=== PATIENT | female | born 1975 | race Caucasian/White ===

== ENCOUNTER 2018-05-23 15:18 | Emergency (ER) | payer BC ==
[2018-05-23] MEDS ORDERED: ASPIRIN 81 MG CHEWABLE TABLETS PO ONE ×2 (15:27→15:44)
[2018-05-23] MEDS ORDERED: ASPIRIN 81 MG CHEWABLE TABLETS ONE (15:29)
--- NOTE | 2018-05-23 15:39 | PDOC ---
Attending Attestation - HPI HPI: 05/23/18 15:45 The patient is a 43 year old female with a PMH of obesity and HTN who presents to the ER with persistent left sided arm discomfort and difficulty sleeping secondary to the discomfort for the past 3 days. Patient was seen by an urgent care at [facility] and was sent to the ED for further evaluation of abnormal EKG. Patient admits to an extensive smoking history. Patient has a positive cardiac family history. The patient denies chest pain, shortness of breath, headache and dizziness. Denies fever, chills, nausea, vomit, diarrhea and constipation. Denies dysuria, frequency, urgency and hematuria. Allergies: NKA Past surgical history: None reported. Social history: No reported drug or alcohol use. Every day smoker. <Ella Williamson - Last Filed: 05/23/18 15:47> - Resident Resident Name: Mayito Faulkner - ED Attending Attestation I have performed the following: I have examined & evaluated the patient, The case was reviewed & discussed with the resident, I agree w/resident's findings & plan, Exceptions are as noted - Physicial Exam PE: 05/23/18 15:54 GENERAL: Awake, alert, and fully oriented, in no acute distress HEAD: No signs of trauma EYES: PERRLA, EOMI, sclera anicteric, conjunctiva clear ENT: Auricles normal inspection, hearing grossly normal, nares patent, Moist mucosa NECK: Normal ROM, supple, LUNGS: Breath sounds equal, clear to auscultation bilaterally. No wheezes, and no crackles HEART: Tachycardia, Regular rate and rhythm, normal S1 and S2, no murmurs, rubs or gallops ABDOMEN: Soft, nontender, No guarding, no rebound. No masses EXTREMITIES: Normal range of motion, no edema. No clubbing or cyanosis. No cords, erythema, or tenderness NEUROLOGICAL: Cranial nerves II through XII grossly intact. Normal speech SKIN: Warm, Dry, normal turgor, no rashes or lesions noted. - Critical Care Time Total Critical Care Time: 30 Critical Care Statement: The care of this patient involved high complexity decision making to prevent further life threatening deterioration of the patient 's condition and/or to evaluate & treat vital organ system(s) failure or risk of failure. - Medical Decision Making 05/23/18 15:34 A portion of this note was documented by scribe services under my direction. I have reviewed the details of the note, within reason, and agree with the documentation with the following case summary and management plan written by me. Patient treated in the ED. Nursing notes are reviewed and incorporated into the medical decision-making. Vital signs reviewed. Peripheral IV access obtained by the nurse, laboratory studies are drawn and sent, reviewed and interpreted by myself. Vital Signs Temp Pulse Resp BP Pulse Ox 142 H 20 210/110 H 100 05/23/18 15:24 05/23/18 15:24 05/23/18 15:24 05/23/18 15:24 43 year old female with reportedly no past medical history, extensive smoking history presents with left arm discomfort. Pt reports for the last 3 days, she felt discomfort left arm pain, unable to sleep. No exacerbating or improving risk factors. Not exertional, however, nonreproducible. Pt does report signficantly strong family history of cardiac disease and MIs in early ages with her father. Pt went to urgent care at [facility], which was concerning for ND. Pt was sent to the ER here. Here ECG, demonstrates findings concerning for STEMI. Stat Cards consultation. Labs including troponin. Chest xray Aspirin. Pt's story is somewhat atypical but ECG is very concerning Very low threshold to transfer stat for cardiac catherization. 05/23/18 15:[address] Jeffrey. Agrees that this is STEMI. [facility] Will reach [facility] transfer momence. Pt agrees for transfer. 05/23/18 16:01 CBC, BMP 05/23/18 15:30 05/23/18 15:30 CMP Sodium 137 mmol/L (136-145) 05/23/18 15:30 Potassium 3.6 mmol/L (3.5-5.1) 05/23/18 15:30 Chloride 102 mmol/L (98-107) 05/23/18 15:30 Carbon Dioxide 24 mmol/L (21-32) 05/23/18 15:30 Anion Gap 11 MMOL/L (8-16) 05/23/18 15:30 BUN 15 mg/dL (7-18) 05/23/18 15:30 Creatinine 1.0 mg/dL (0.55-1.3) 05/23/18 15:30 Creat Clearance w eGFR > 60 (>60) 05/23/18 15:30 Random Glucose 109 mg/dL (74-106) H 05/23/18 15:30 Calcium 8.6 mg/dL (8.5-10.1) 05/23/18 15:30 Magnesium 2.1 mg/dL (1.8-2.4) 05/23/18 15:30 Total Bilirubin 0.7 mg/dL (0.2-1) 05/23/18 15:30 AST 237 U/L (15-37) H 05/23/18 15:30 ALT 46 U/L (13-61) 05/23/18 15:30 Alkaline Phosphatase 100 U/L (45-117) 05/23/18 15:30 Creatine Kinase > 1000 U/L (26-192) H 05/23/18 15:30 Total Protein 7.9 g/dl (6.4-8.2) 05/23/18 15:30 Albumin 4.2 g/dl (3.4-5.0) 05/23/18 15:30 Trop [address] discussed [address] DR. Hernandez - [facility]. Requests ticagrelor. Will transfer stat to [facility]. <Prosper Gonzalez - Last Filed: 05/23/18 16:06> Heart Score/ECG Review #1 ECG reviewed & interpreted by me at: 15:25 05/23/18 15:34 NSR 136, Q-NATALIE V3-V6, NATALIE II, avF, QTC 439 msec (STEMI) <Prosper Gonzalez - Last Filed: 05/23/18 16:06>
[2018-05-23 15:42] LABS: EOS % 0.8 % (0-4.5); HEMATOCRIT 46.7 % (32.4-45.2); LYMPH % 22.9 % (8-40); MCH 29.2 pg (25.7-33.7); MCHC 34.3 g/dl (32.0-36.0); MEAN CELL VOLUME 84.9 fl (80-96); MEAN PLT VOLUME 9.8 fl (7.5-11.1); MONO % 8.3 % (3.8-10.2); PLATELET COUNT 199 K/MM3 (134-434); RDW 14.1 % (11.6-15.6); WHITE BLOOD COUNT 19.8 K/mm3 (4.0-10.0)
[2018-05-23] MEDS ORDERED: CLOPIDOGREL BISULFATE 300 MG TABLET PO ONE (15:44)
--- NOTE | 2018-05-23 15:44 | PDOC ---
History of Present Illness - General Chief Complaint: Pain Stated Complaint: RIGHT ARM PAIN Time Seen by Provider: 05/23/18 15:24 History Source: Patient Exam Limitations: No Limitations - History of Present Illness Initial Comments: 05/23/18 15:42 Patient is a 43F with history of obesity, htn, smoking here today complaining of left arm pain. She initially presented to [facility] urgent care with left arm pain. EKG showed STEMI, patient drove to our hospital denying an ambulance. Patient states that the pain has been going on for three days. No modifying factors. Patient states that the pain is bad enough to keep her up at night. EKG done at [facility] shows STEMI in lateral leads. Past History - Past Medical History Allergies/Adverse Reactions: Allergies Allergy/AdvReac Type Severity Reaction Status Date / Time No Known Allergies Allergy Verified 05/23/18 15:33 Home Medications: Ambulatory Orders NK [No Known Home Medication] 05/23/18 COPD: No - Suicide/Smoking/Psychosocial Hx Smoking History: Current every day smoker Number of Cigarettes Smoked Daily: 10 Information on smoking cessation initiated: No Review of Systems - Review of Systems Able to Perform ROS?: Yes Comments:: 05/23/18 15:49 GENERAL/CONSTITUTIONAL: No fever or chills. No weakness. HEAD, EYES, EARS, NOSE AND THROAT: No change in vision. No sore throat. CARDIOVASCULAR: No chest pain or shortness of breath RESPIRATORY: No cough, wheezing, or hemoptysis. GASTROINTESTINAL: No nausea, vomiting, diarrhea or constipation. GENITOURINARY: No dysuria, frequency, or change in urination. MUSCULOSKELETAL: +L arm pain. No neck or back pain. SKIN: No rash NEUROLOGIC: No headache, vertigo, loss of consciousness, or change in strength/ sensation. ENDOCRINE: No increased thirst. No abnormal weight change HEMATOLOGIC/LYMPHATIC: No anemia, easy bleeding, or history of blood clots. ALLERGIC/IMMUNOLOGIC: No hives or skin allergy. *Physical Exam - Vital Signs Last Vital Signs Temp Pulse Resp BP Pulse Ox 142 H 20 210/110 H 100 05/23/18 15:24 05/23/18 15:24 05/23/18 15:24 05/23/18 15:24 - Physical Exam Comments: 05/23/18 15:50 GENERAL: Awake, alert, and fully oriented, in no acute distress HEAD: No signs of trauma, normocephalic, atraumatic EYES: PERRLA, EOMI, sclera anicteric, conjunctiva clear ENT: Auricles normal inspection, hearing grossly normal, nares patent, oropharynx clear without exudates. Moist mucosa NECK: Normal ROM, supple, no lymphadenopathy, JVD, or masses LUNGS: No distress, speaks full sentences, clear to auscultation bilaterally HEART: Tachycardic, normal S1 and S2, no murmurs, rubs or gallops, peripheral pulses normal and equal bilaterally. ABDOMEN: Soft, nontender, normoactive bowel sounds. No guarding, no rebound. No masses EXTREMITIES: Normal inspection, Normal range of motion, no edema. No clubbing or cyanosis. NEUROLOGICAL: Cranial nerves II through XII grossly intact. Normal speech, normal gait, no focal sensorimotor deficits SKIN: Warm, Dry, normal turgor, no rashes or lesions noted Moderate Sedation - Procedure Monitoring Vital Signs: Procedure Monitoring Vital Signs Temperature Pulse Rate 142 H 05/23/18 15:24 Respiratory Rate 20 05/23/18 15:24 Blood Pressure 210/110 H 05/23/18 15:24 O2 Sat by Pulse Oximetry (%) 100 05/23/18 15:24 ED Treatment Course - LABORATORY CBC & Chemistry Diagram: 05/23/18 15:30 05/23/18 15:30 - RADIOLOGY Radiology Studies Ordered: Category Date Time Status CHEST X-RAY PORTABLE* [RAD] Stat Radiology 05/23/18 15:27 Ordered - Medications Given in the ED: ED Medications Discontinued Medications Generic Name Dose Route Start Last Admin Trade Name Freq PRN Reason Stop Dose Admin Aspirin 162 mg 05/23/18 15:27 05/23/18 15:33 Asa - PO 05/23/18 15:28 162 mg ONCE ONE Administration Medical Decision Making - Medical Decision Making 05/23/18 15:50 Patient is 43F with history of obesity, htn, smoking here today with l arm pain. Vitals notable for htn. EKG from [facility] shows ST elevations in lateral leads, rate of 90. Normal axis, normal intervals. EKG from triage shows st elevations in V3-V6, I, II, aVF. Rate 136, sinus tachycardia. Normal intervals. 05/23/18 16:08 Trop 28, cbc shows leukocytosis. No signs of alternative diagnosis such as PE, dissection, sepsis. Case d/w Dr Aldridge, accepted for transfer. EKGs sent. Brilinta 180 given as per request. Aspirin and heparin given. 05/23/18 16:13 CXR shows cardiomegaly, no widened mediastinum, no infiltrate. Patient transferred to [facility]. *DC/Admit/Observation/Transfer Diagnosis at time of Disposition: STEMI (ST elevation myocardial infarction) - Discharge Dispostion Disposition: TRANSFER ACUTE CARE/OTHER HOSP Condition at time of disposition: Critical - Referrals - Patient Instructions - Post Discharge Activity - Transfer to Acute Care Facility Receiving Facility: [facility] Accepting Physician:: Harmony
[2018-05-23] MEDS ORDERED: CLOPIDOGREL BISULFATE 300 MG TABLET ONE (15:49)
[2018-05-23] MEDS ORDERED: ASPIRIN COATED 81 MG TABLET.EC ONE (15:50)
[2018-05-23] MEDS ORDERED: HEPARIN NA (PORCINE) 5,000 UNITS/ML 1ML VIAL ONE (15:54)
[2018-05-23] MEDS ORDERED: HEPARIN NA (PORCINE) 5,000 UNITS/ML 1ML VIAL IVPUSH ONE (15:54)
[2018-05-23 15:55] LABS: INR 1.15 (0.83-1.09); PROTHROMBIN TIME (PATIENT) 13.6 SEC (9.7-13.0)
[2018-05-23 16:00] LABS: ALBUMIN 4.2 g/dl (3.4-5.0); ALK PHOS 100 U/L (45-117); ANION GAP 11 MMOL/L (8-16); BILIRUBIN,TOTAL 0.7 mg/dL (0.2-1); BLOOD UREA NITROGEN 15 mg/dL (7-18); CALCIUM 8.6 mg/dL (8.5-10.1); CHLORIDE 102 mmol/L (98-107); CO2 24 mmol/L (21-32); GLUCOSE,RANDOM 109 mg/dL (74-106); MAGNESIUM 2.1 mg/dL (1.8-2.4); POTASSIUM 3.6 mmol/L (3.5-5.1); SGOT/AST 237 U/L (15-37); SGPT/ALT 46 U/L (13-61); SODIUM 137 mmol/L (136-145); TOT PROT 7.9 g/dl (6.4-8.2)
[2018-05-23] MEDS ORDERED: TICAGRELOR 90 MG TABLET PO ONE ×2 (16:00→16:04)
[2018-05-23 16:41] VITALS: BP 170/106; PULSE 126
--- NOTE | 2018-05-23 17:35 | CON.CARD ---
Consult Consult Specialty:: CARDIOLOGY Reason for Consultation:: chest pain; STEMI - History of Present Illness Chief Complaint: Pt A&Ox3; +left-sided chest pain, though mild now. and mother are at bedside. History of Present Illness: The patient is a 43 year old white woman with a PMH of obesity, long-term cigarette smoking, family hx CAD (father had MS),sedentary lifestyle, and HTN ( pt did not know she had HTN until now), who presents to the ER with persistent left sided arm discomfort and difficulty sleeping secondary to the discomfort for the past 3 days (she waited to see MD because she thought it was the same pain she usually has when she sleeps on lieft side; however, this was more severe and kept her from sleeping). Patient was seen by an urgent care at [facility] and was sent to the ED for further evaluation of abnormal EKG. The patient denies chest pain, shortness of breath, headache and dizziness. Denies fever, chills, nausea, vomit, diarrhea and constipation. Denies dysuria, frequency, urgency and hematuria. Allergies: NKA Past surgical history: None reported. Social history: No reported drug or alcohol use. Every day smoker. Denies diabetes, but glucse elevated today. - History Source History Provided By: Patient, Family Member, Medical Record Limitations to Obtaining History: No Limitations - Smoking History Smoking history: Current every day smoker Aproximately how many cigarettes per day: 10 Home Medications - Allergies Allergies/Adverse Reactions: Allergies Allergy/AdvReac Type Severity Reaction Status Date / Time No Known Allergies Allergy Verified 05/23/18 15:33 - Home Medications Home Medications: Ambulatory Orders NK [No Known Home Medication] 05/23/18 Family Disease History - Family Disease History Family Disease History: Heart Disease: Father (MS om tanner 60s) Review of Systems - Review of Systems Constitutional: reports: No Symptoms Eyes: reports: No Symptoms HENT: reports: No Symptoms Neck: reports: No Symptoms Cardiovascular: reports: Chest Pain Respiratory: reports: No Symptoms Gastrointestinal: reports: No Symptoms Genitourinary: reports: No Symptoms Breasts: reports: No Symptoms Reported Musculoskeletal: reports: No Symptoms Integumentary: reports: No Symptoms Neurological: reports: No Symptoms Endocrine: reports: No Symptoms Hematology/Lymphatic: reports: No Symptoms Psychiatric: reports: No Symptoms - Risk Factors Known Risk Factors: Yes: Age, Family History, Hypercholesterolemia, Hypertension , Physical Inactivity, Smoking. No: Diabetes Mellitus Vital Signs: Vital Signs Temperature Pulse Rate 126 H 05/23/18 16:41 Respiratory Rate 20 05/23/18 16:41 Blood Pressure 170/106 H 05/23/18 16:41 O2 Sat by Pulse Oximetry (%) 99 05/23/18 16:40 Abnormal Lab Results 05/23/18 05/23/18 05/23/18 15:30 15:30 15:30 WBC 19.8 H RBC 5.50 H Hgb 16.0 H Hct 46.7 H Absolute Neuts (auto) 13.3 H PT with INR 13.60 H INR 1.15 H Random Glucose 109 H AST 237 H Creatine Kinase 1869 H Creatine Kinase Index 8.2 H* CK-MB (CK-2) 152.8 H Troponin I 28.40 H* 05/23/18 05/23/18 15:30 15:30 WBC RBC Hgb Hct Absolute Neuts (auto) PT with INR INR Random Glucose AST Creatine Kinase Creatine Kinase Index CK-MB (CK-2) 153.0 H 153 H Troponin I Constitutional: Yes: Anxious, Obese Eyes: Yes: WNL HENT: Yes: WNL Neck: Yes: WNL Respiratory: Yes: Diminished Gastrointestinal: Yes: Soft, Abdomen, Obese Renal/: No: Anuria Cardiovascular: Yes: Tachycardia JVD: No Carotid Bruit: No PMI: Non-Displaced Heart Sounds: Yes: S1, S2, S4 Musculoskeletal: Yes: WNL Extremities: Yes: WNL Edema: No Integumentary: Yes: WNL Neurological: Yes: WNL ...Motor Strength: WNL Psychiatric: Yes: WNL - Other Data Labs, Other Data: CBC, BMP 05/23/18 15:30 05/23/18 15:30 INR, PTT INR 1.15 (0.83-1.09) H 05/23/18 15:30 Troponin, BNP 05/23/18 15:30 Troponin I 28.40 H* Troponin, BNP 05/23/18 15:30 Troponin I 28.40 H* Abnormal Lab Results 05/23/18 05/23/18 05/23/18 15:30 15:30 15:30 WBC 19.8 H RBC 5.50 H Hgb 16.0 H Hct 46.7 H Absolute Neuts (auto) 13.3 H PT with INR 13.60 H INR 1.15 H Random Glucose 109 H AST 237 H Creatine Kinase 1869 H Creatine Kinase Index 8.2 H* CK-MB (CK-2) 152.8 H Troponin I 28.40 H* 05/23/18 05/23/18 15:30 15:30 WBC RBC Hgb Hct Absolute Neuts (auto) PT with INR INR Random Glucose AST Creatine Kinase Creatine Kinase Index CK-MB (CK-2) 153.0 H 153 H Troponin I Imaging - Results Chest X-ray: Image Reviewed EKG: Image Reviewed (STEMI) Problem List - Problems (1) HTN (hypertension) Code(s): I10 - ESSENTIAL (PRIMARY) HYPERTENSION (2) Obese Code(s): E66.9 - OBESITY, UNSPECIFIED (3) Hyperglycemia Code(s): R73.9 - HYPERGLYCEMIA, UNSPECIFIED (4) Hyperlipidemia Code(s): E78.5 - HYPERLIPIDEMIA, UNSPECIFIED (5) Sedentary lifestyle Code(s): Z91.89 - OTH PERSONAL RISK FACTORS, NOT ELSEWHERE CLASSIFIED (6) Family history of coronary artery disease Code(s): Z82.49 - FAMILY HX OF ISCHEM HEART DIS AND OTH DIS OF THE [facility] SYS (7) STEMI (ST elevation myocardial infarction) Assessment/Plan: Marked ST elevation anterolaterally. Tropinin 28; CK > 1,800, with CKMB relative index >8. Plan: ASA 325 mg PO. IV heparin. Tacagrelor. Atorvastatin 80 mg. Pt for emergent transfer to [facility] for coronary angiogram. Code(s): I21.3 - ST ELEVATION (STEMI) MYOCARDIAL INFARCTION OF [facility] SITE
--- NOTE | 2018-05-23 22:03 | EKG ---
Test Reason : Blood Pressure : / mmHG Vent. Rate : 136 BPM Atrial Rate : 136 BPM P-R Int : 136 ms QRS Dur : 078 ms QT Int : 292 ms P-R-T Axes : 058 168 060 degrees QTc Int : 439 ms SINUS TACHYCARDIA POSSIBLE LEFT ATRIAL ENLARGEMENT INFERIOR INFARCT , POSSIBLY ACUTE WITH ST ELEVATION ANTERIORLATERAL ST ELEVATION, MYOCARDIAL INFARCTION, ACUTE OR RECENT POOR R PROGRESSION DUE TO MYOCARDIAL DAMAGE ABNORMAL ECG NO PREVIOUS ECGS AVAILABLE Confirmed by BRANDON HERBERT, LIYAH ([id number]) on 05/23/2018 10:02:48 PM Referred By: Confirmed By:LIYAH TAYLOR MD
[2018-05-24] MEDS ORDERED: TICAGRELOR 90 MG TABLET PO ONE (10:00)
== END 2018-05-23 16:40 | disposition short-term general hospital (02) ==
LOC: JER 15:18
PROC: 3E033GC Introduction of Other Therapeutic Substance into Peripheral Vein, Percutaneous Approach (ICD-10-PCS; principal; 2018-05-23)
DX: I21.3 ST elevation (STEMI) myocardial infarction of unspecified site (principal); I10 Essential (primary) hypertension; E78.5 Hyperlipidemia, unspecified; F17.210 Nicotine dependence, cigarettes, uncomplicated; R73.9 Hyperglycemia, unspecified; Z91.89 Other specified personal risk factors, not elsewhere classified; Z82.49 Family history of ischemic heart disease and other diseases of the circulatory system
CPT/HCPCS: 36415; 71045-TC-FY; 80053; 82550; 82553; 83036; 83735; 84484; 84703; 85025; 85610; 93005; 93010; 99285-25; J1644

== ENCOUNTER 2018-05-28 13:48 | Emergency (ER) | payer BC ==
[2018-05-28] MEDS ORDERED: ASPIRIN 81 MG CHEWABLE TABLETS PO ONE (13:58)
--- NOTE | 2018-05-28 13:59 | PDOC ---
Rapid Medical Evaluation Time Seen by Provider: 05/28/18 13:57 Medical Evaluation: Allergies Allergy/AdvReac Type Severity Reaction Status Date / Time No Known Allergies Allergy Verified 05/23/18 15:33 05/28/18 13:57 I have performed a brief in-person evaluation of this patient. The patient presents with a chief complaint of:L shoulder pain s/p cardiac stent hx of STEMI Pertinent physical exam findings:NAD I have ordered the following:Cardiac work up The patient will proceed to the ED for further evaluation. 05/28/18 13:59 Discharge Disposition - Diagnosis Shoulder pain, left - Referrals - Patient Instructions - Post Discharge Activity
[2018-05-28 14:02] VITALS: BMI 42.1
--- NOTE | 2018-05-28 14:07 | PDOC ---
Attending Attestation - ED Attending Attestation I have performed the following: I have examined & evaluated the patient, The case was reviewed & discussed with the resident, I agree w/resident's findings & plan - HPI HPI: 05/28/18 15:38 The patient is a 43 year old female, with a significant past medical history of STEMI (seen 05/23/18 now s/p cardiac stenting x3 at [facility]), HTN, obesity, who presents to the emergency department with, left shoulder pain ranked a 2/10. Patients symptoms are similar to her prior UT. She denies recent fevers, chills, headache or dizziness. She denies recent nausea, vomit, diarrhea or constipation. She denies recent dysuria, frequency, urgency or hematuria. Allergies: NKDA Past surgical history: None reported. Social history: Smoker (~10 pack years, quit since recent UT) Aquatic Physiotherapist: Dr. Jeffrey - Medical Decision Making 05/28/18 14:15pm Call placed to Dr. Jeffrey's office, awaiting call back. 14:30pm Second call placed to Dr. Jeffrey's office, awaiting call back. 14:40pm Call placed to [facility] [place] for STEMI transfer. Resident Dr. Flaquita May discussed case with cardio fellow, case was accepted. 14:30pm Third call placed to Dr. Jeffrey's office, case was discussed. <Michael Greenberg - Last Filed: 05/28/18 15:38> - Resident Resident Name: Flaquita May - Physicial Exam PE: 05/30/18 00:39 Gen: alert, NAD CV: rrr no m/r/g Pulm: CTA b/l Abdomen: soft, NT, ND - Critical Care Time Total Critical Care Time: 30 Critical Care Statement: The care of this patient involved high complexity decision making to prevent further life threatening deterioration of the patient 's condition and/or to evaluate & treat vital organ system(s) failure or risk of failure. - Medical Decision Making 05/28/18 14:58 Pt presents to the ED with L shoulder pain similar to pain with recent UT. EKG shows ST elevations in anterior and lateral leads. Patient presented to the ED with STEMI one week ago and had cath at [facility] with two stents placed. on brillanta, which she states she has been taking. Concern for in stent stenosis. Attempt to page [facility] x 2 without success. Will call [facility] directly to initiate transfer to [facility] <Alisa Chong - Last Filed: 05/30/18 00:40> Attestations - Attestations 05/28/18 15:41 Documentation prepared by Michael Greenberg, acting as medical or surgical instrument maker for Alisa Chong MD. <Michael Greenberg - Last Filed: 05/28/18 15:38>
[2018-05-28] MEDS ORDERED: ASPIRIN 81 MG CHEWABLE TABLETS ONE (14:20)
[2018-05-28 14:40] LABS: BASO % 1.1 % (0-2.0); EOS % 1.8 % (0-4.5); HEMATOCRIT 41.1 % (32.4-45.2); MCHC 33.9 g/dl (32.0-36.0); MEAN CELL VOLUME 85.4 fl (80-96); MEAN PLT VOLUME 9.7 fl (7.5-11.1); MONO % 6.4 % (3.8-10.2); NEUT % 73.7 % (42.8-82.8); PLATELET COUNT 252 K/MM3 (134-434); RBC 4.82 M/mm3 (3.60-5.2); RDW 13.4 % (11.6-15.6); WHITE BLOOD COUNT 12.2 K/mm3 (4.0-10.0)
[2018-05-28 14:53] LABS: INR 1.25 (0.83-1.09); PROTHROMBIN TIME (PATIENT) 14.8 SEC (9.7-13.0)
--- NOTE | 2018-05-28 15:01 | PDOC ---
History of Present Illness - General Chief Complaint: Pain, Acute Stated Complaint: LT SHOULDER PAIN Time Seen by Provider: 05/28/18 13:57 - History of Present Illness Initial Comments: Vera Lott is a 43yo woman with a PMH of recent STEMI (seen 05/23/18) now s/p 2x stent placement at [facility], HTN, obesity, smoking (~ 10 pack years, quit since recent GA) who presents with 2/10 left shoulder that started around 10-11am today. The current pain is described as an ache, and it is very similar to the pain she experienced with her STEMI. She denies any diaphoresis, chest pain, SOB, pain radiation, lightheadedness, or other recent symptoms. Ms Lott states that she has been taking all of the medications she was prescribed at her hospital discharge on Thursday. Over the past few days, she has been pain-free up until this morning. Past History - Past Medical History Allergies/Adverse Reactions: Allergies Allergy/AdvReac Type Severity Reaction Status Date / Time No Known Allergies Allergy Verified 05/28/18 13:59 Home Medications: Ambulatory Orders Aspirin [ASA -] 81 mg PO DAILY 05/28/18 Atorvastatin Ca [Lipitor] 80 mg PO HS 05/28/18 Lisinopril [Prinivil] 10 mg PO DAILY 05/28/18 Metoprolol Succinate [Toprol Xl] 100 mg PO DAILY 05/28/18 Nitroglycerin Sublingual [Nitrostat -] 0.4 mg SL ASDIR PRN 05/28/18 Ticagrelor [Brilinta] 90 mg PO BID 05/28/18 Cardiac Disorders: Yes (GA W/ STENTS X2) COPD: No - Surgical History Cardiac Surgery: Yes (STENTS X2) - Immunization History Immunization Up to Date: Yes - Suicide/Smoking/Psychosocial Hx Smoking History: Never smoked Number of Cigarettes Smoked Daily: 10 Information on smoking cessation initiated: No Hx Alcohol Use: No Drug/Substance Use Hx: No Cardiac Specific PMH - Complaint Specific PMHX Abdominal Aortic Aneurysm: No Angina: No Cardiac Arrhythmia: No Cardiac Stent: Yes (05/23/18, 2x stents inc LAD) Myocardial Infarction: Yes (05/23/18) Review of Systems - Review of Systems Comments:: General: No fevers, no chills, no weight or appetite change, no malaise HEENT: No changes in vision, no changes in hearing, no congestion, no sore throat CV: No chest pain, no palpitations, no LE edema. +L shoulder pain, +STEMI on s/p 2x stents Pulm: No SOB, no cough, no wheezing GI: No nausea or vomiting, no change in bowel habits, no melena : No frequency, no urgency, no dysuria Musc: No back pain, no joint swelling, no recent injury Skin: No rash, no lesions, no erythema Endo: No excessive thirst, no heat/cold intolerance Heme: No unusual bruising or bleeding, no swollen glands Neuro: No syncope, no numbness/tingling, no focal weakness Vasc: No claudication Psych: No recent change in mood, no SI or HI *Physical Exam - Vital Signs Last Vital Signs Temp Pulse Resp BP Pulse Ox 98.0 F 76 18 141/97 100 05/28/18 14:40 05/28/18 14:40 05/28/18 14:40 05/28/18 14:40 05/28/18 14:40 - Physical Exam Comments: General: Comfortable, no acute distress HEENT: PERRL, EOMI, MMM, voice normal, normal neck ROM, no LAD Cards: RRR, no murmur appreciated Pulm: Comfortable on room air, clear to auscultation bilaterally Abd: Soft, nontender, nondistended Ext: Atraumatic. No LE edema. ROM intact. Strength equal bilaterally Vasc: Extremities WWP Skin: Normal color, no rashes or lesions Neuro: A&Ox3, CN grossly intact, normal speech, motor/sensory grossly intact and symmetric Psych: Mood appropriate to situation Moderate Sedation - Procedure Monitoring Vital Signs: Procedure Monitoring Vital Signs Temperature 98.0 F 05/28/18 14:40 Pulse Rate 76 05/28/18 14:40 Respiratory Rate 18 05/28/18 14:40 Blood Pressure 141/97 05/28/18 14:40 O2 Sat by Pulse Oximetry (%) 100 05/28/18 14:40 ED Treatment Course - LABORATORY CBC & Chemistry Diagram: 05/28/18 14:20 05/28/18 14:20 - ADDITIONAL ORDERS Additional order review: Laboratory Results 05/28/18 05/28/18 05/28/18 14:20 14:20 14:20 WBC 12.2 H RBC 4.82 Hgb 14.0 Hct 41.1 MCV 85.4 MCH 29.0 MCHC 33.9 RDW 13.4 Plt Count 252 D MPV 9.7 Absolute Neuts (auto) 9.0 H Neutrophils % 73.7 Lymphocytes % 17.0 D Monocytes % 6.4 Eosinophils % 1.8 D Basophils % 1.1 Nucleated RBC % 0 PT with INR 14.80 H INR 1.25 H Sodium 138 Potassium 4.2 Chloride 104 Carbon Dioxide 26 Anion Gap 8 BUN 14 Creatinine 0.9 Creat Clearance w eGFR > 60 Random Glucose 118 H Calcium 9.1 Magnesium 2.7 H Total Bilirubin 0.8 AST 38 H ALT 36 Alkaline Phosphatase 88 Creatine Kinase 185 Creatine Kinase Index 0.9 CK-MB (CK-2) 1.8 Troponin I 6.44 H* Total Protein 7.9 Albumin 3.8 05/28/18 14:20 RBC 4.82 MCV 85.4 MCHC 33.9 RDW 13.4 MPV 9.7 Neutrophils % 73.7 Lymphocytes % 17.0 D Monocytes % 6.4 Eosinophils % 1.8 D Basophils % 1.1 - RADIOLOGY Radiology Studies Ordered: Category Date Time Status CHEST PA & LAT [RAD] Stat Radiology 05/28/18 15:18 Ordered - Medications Given in the ED: ED Medications Discontinued Medications Generic Name Dose Route Start Last Admin Trade Name Freq PRN Reason Stop Dose Admin Aspirin 162 mg 05/28/18 13:58 05/28/18 14:21 Asa - PO 05/28/18 13:59 162 mg ONCE ONE Administration Medical Decision Making - Medical Decision Making 05/28/18 14:33 Vera Lott is a 43yo woman with a PMH of recent STEMI (seen 05/23/18) now s/p 2x stent placement at [facility], HTN, obesity, smoking (~ 10 pack years, quit since recent GA) who presents with 2/10 left shoulder ache similar to the pain she experienced with her STEMI. An EKG was completed in [facility] , and it shows ST elevations in V2-V6 similar to last week. The elevations appear to be less severe than previously, but there is no post-PCI EKG available for comparison. Ms Lott states that her previous pain did resolve after stenting, and it restarted this morning around 10-11am. - CBC, chemistry, cardiac profile, CXR ordered in [facility] - Call placed to cardiology, waiting for call back 05/28/18 15:07 - Trop and CK pending - 2x calls placed to cardiology w/o response - On phone with [place] interventional cardiology. Difficulty sending EKG, will fax 05/28/18 15:29 - Accepted for transfer by Dr Hernandez at [place] - Will consent for transfer. Ambulance is on the way for transfer Discussed with Dr Arlette May PGY1 *DC/Admit/Observation/Transfer Diagnosis at time of Disposition: STEMI (ST elevation myocardial infarction) - Discharge Dispostion Disposition: TRANSFER ACUTE CARE/OTHER HOSP Condition at time of disposition: Stable - Referrals - Patient Instructions - Post Discharge Activity - Transfer to Acute Care Facility Receiving Facility: [facility]) Accepting Physician:: Dr Taylor
[2018-05-28 15:15] LABS: ALBUMIN 3.8 g/dl (3.4-5.0); ALK PHOS 88 U/L (45-117); ANION GAP 8 MMOL/L (8-16); BILIRUBIN,TOTAL 0.8 mg/dL (0.2-1); BLOOD UREA NITROGEN 14 mg/dL (7-18); CALCIUM 9.1 mg/dL (8.5-10.1); CHLORIDE 104 mmol/L (98-107); CO2 26 mmol/L (21-32); CREATININE 0.9 mg/dL (0.55-1.3); GLUCOSE,RANDOM 118 mg/dL (74-106); MAGNESIUM 2.7 mg/dL (1.8-2.4); POTASSIUM 4.2 mmol/L (3.5-5.1); SGOT/AST 38 U/L (15-37); SGPT/ALT 36 U/L (13-61); SODIUM 138 mmol/L (136-145); TOT PROT 7.9 g/dl (6.4-8.2)
[2018-05-28 15:43] VITALS: TEMP 98
[2018-05-28 15:58] VITALS: BP 136/86; PULSE 74
--- NOTE | 2018-05-31 11:04 | EKG ---
Test Reason : Blood Pressure : / mmHG Vent. Rate : 090 BPM Atrial Rate : 090 BPM P-R Int : 172 ms QRS Dur : 094 ms QT Int : 370 ms P-R-T Axes : 052 150 060 degrees QTc Int : 452 ms NORMAL SINUS RHYTHM POSSIBLE LEFT ATRIAL ENLARGEMENT INFERIOR INFARCT (CITED ON OR BEFORE 23-MAY-2018) ANTEROLATERAL INFARCT (CITED ON OR BEFORE 23-MAY-2018) ST ELEVATION, EVOLVING MYOCARDIAL INFARCTION ABNORMAL ECG WHEN COMPARED WITH ECG OF 23-MAY-2018 15:22, VENT. RATE HAS DECREASED BY 46 BPM Confirmed by LIYAH TAYLOR MD ([id number]) on 05/31/2018 11:04:07 AM Referred By: Confirmed By:LIYAH TAYLOR MD
== END 2018-05-28 15:57 | disposition short-term general hospital (02) ==
LOC: JER 13:48
DX: I21.3 ST elevation (STEMI) myocardial infarction of unspecified site (principal); Z95.5 Presence of coronary angioplasty implant and graft; I25.2 Old myocardial infarction; Z87.891 Personal history of nicotine dependence
CPT/HCPCS: 36415; 80053; 82550; 82553; 83735; 84484; 85025; 85610; 93005; 93010; 99285-25

== ENCOUNTER 2018-06-17 11:27 | Observation (INO) | payer BC ==
[2018-06-17] MEDS ORDERED: ASPIRIN 81 MG CHEWABLE TABLETS PO ONE (12:13)
--- NOTE | 2018-06-17 12:20 | PDOC ---
History of Present Illness - General Chief Complaint: Chest Pain Stated Complaint: CHEST PAIN History Source: Patient Exam Limitations: No Limitations - History of Present Illness Initial Comments: 06/17/18 12:17 43 yo F with a hx of CAD s/p PCI 2x 4 weeks ago and HTN presents to the emergency department with chest pain mid sternum. Per the patient, she states the pain started suddenly at random without radiation that feels like tightness currently 2/10. Of note, the pain She took yesterday 0.4 nitro at 4-5 pm with relief achieved of the pain. The pain lasts for minutes and terminates on its own. This morning, she awoke with nausea and chest pain. Denies the following: recent travels, headache, lightheadedness, nausea, vomiting, dysuria, hematuria , SOB, visual changes, FND, trauma, hx of DVT/PE, abdominal pain, diarrhea, hematochezia, and leg pain/swelling Shx: None Meds: Brillinta, aspirin Allergies: NKDA Social: Former smoker; quit 4 weeks ago. Denies substance abuse and alcohol abuse. Can Striper: Dr. Jeffrey Past History - Past Medical History Allergies/Adverse Reactions: Allergies Allergy/AdvReac Type Severity Reaction Status Date / Time No Known Allergies Allergy Verified 06/17/18 11:41 Home Medications: Ambulatory Orders Aspirin [ASA -] 81 mg PO DAILY 05/28/18 Atorvastatin Ca [Lipitor] 80 mg PO HS 05/28/18 Lisinopril [Prinivil] 10 mg PO DAILY 05/28/18 Metoprolol Succinate [Toprol Xl] 100 mg PO DAILY 05/28/18 Nitroglycerin Sublingual [Nitrostat -] 0.4 mg SL ASDIR PRN 05/28/18 Ticagrelor [Brilinta -] 90 mg PO BID 05/28/18 Spironolactone 12.5 mg PO DAILY 06/17/18 Cardiac Disorders: Yes (MT W/ STENTS X2) COPD: No - Surgical History Cardiac Surgery: Yes (STENTS X2) - Immunization History Immunization Up to Date: Yes - Suicide/Smoking/Psychosocial Hx Smoking History: Former smoker Have you smoked in the past 12 months: No Number of Cigarettes Smoked Daily: 10 If you are a former smoker, when did you quit?: 04/2018 Information on smoking cessation initiated: No Hx Alcohol Use: No Drug/Substance Use Hx: No Review of Systems - Review of Systems Able to Perform ROS?: Yes Is the patient limited Tajik proficient: No Constitutional: No: Chills, Diaphoresis, Fever, Weakness HEENTM: No: Eye Pain, Blurred Vision, Recent change in vision, Ear Pain, Nose Pain, Mouth Pain Respiratory: No: Cough, Shortness of Breath, Hemoptysis Cardiac (ROS): Yes: Chest Pain. No: Lightheadedness, Palpitations, Syncope, Chest Tightness ABD/GI: No: Constipated, Diarrhea, Nausea, Rectal Bleeding, Vomiting, Tarry Stools : No: Burning, Dysuria, Incontinence, Pain, Urgency Musculoskeletal: No: Back Pain, Joint Pain, Neck Pain Integumentary: No: Bruising, Erythema, Rash Neurological: No: Headache, Numbness, Tingling, Tremors, Weakness, Dizziness Psychiatric: No: Change in Appetite Endocrine: No: Unexplained Weight Gain *Physical Exam - Vital Signs Last Vital Signs Temp Pulse Resp BP Pulse Ox 98.5 F 77 19 164/73 99 06/17/18 11:38 06/17/18 11:38 06/17/18 11:38 06/17/18 11:38 06/17/18 11:38 - Physical Exam General Appearance: Yes: Nourished, Appropriately Dressed, Obese. No: Apparent Distress HEENT: positive: EOMI, JACQUELINE, Normal Voice, Symmetrical, Pharynx Normal, Hearing Grossly Normal. negative: Pale Conjunctivae, Scleral Icterus (R), Scleral Icterus (L), Muffled/Hoarse voice, Pharyngeal Erythema, Tonsillar Exudate, Tonsillar Erythema, Excessive drooling Neck: positive: Trachea midline, Supple. negative: Tender, Lymphadenopathy (R) , Lymphadenopathy (L), Tender lateral, Tender midline Respiratory/Chest: positive: Lungs Clear, Normal Breath Sounds. negative: Chest Tender, Respiratory Distress, Accessory Muscle Use Cardiovascular: positive: Regular Rhythm, Regular Rate, S1, S2, Systolic Murmur Gastrointestinal/Abdominal: positive: Normal Bowel Sounds, Flat, Soft. negative : Tender Lymphatic: negative: Adenopathy Musculoskeletal: positive: Normal Inspection. negative: CVA Tenderness, Vertebral Tenderness Extremity: positive: Normal Capillary Refill, Normal Inspection, Normal Range of Motion. negative: Tender, Swelling, Calf Tenderness Integumentary: positive: Normal Color, Dry, Warm. negative: Petechiae, Rash, Swelling Neurologic: positive: grid operator II-XII NML intact, Fully Oriented, Alert, Normal Mood/ Affect, Normal Response, Motor Strength 5/5. negative: EOM Palsy Moderate Sedation - Procedure Monitoring Vital Signs: Procedure Monitoring Vital Signs Temperature 98.5 F 06/17/18 11:38 Pulse Rate 77 06/17/18 11:38 Respiratory Rate 19 06/17/18 11:38 Blood Pressure 164/73 06/17/18 11:38 O2 Sat by Pulse Oximetry (%) 99 06/17/18 11:38 Heart Score/ECG Review - ECG Intrepretation Comment:: ventricular rate is 70 bpm, WI is 172 ms, QTc is 483 ms, QRS is 98 ms. NSR with q waves in II,III, aVF seen in prior EKG and q waves in the V2-V6 seen in previous EKG. No ST elevations or depressions. Changed from previous EKG which shows ST elevations. ED Treatment Course - LABORATORY CBC & Chemistry Diagram: 06/18/18 06:17 06/18/18 06:17 Medical Decision Making - Medical Decision Making 06/17/18 12:56 43 yo F with a hx of CAD s/p PCI 2x 4 weeks ago and HTN presents to the emergency department with chest pain mid sternum. Initial vitals: Initial Vital Signs Temp Pulse Resp BP Pulse Ox 98.5 F 77 19 164/73 99 06/17/18 11:38 06/17/18 11:38 06/17/18 11:38 06/17/18 11:38 06/17/18 11:38 Work up: ddx: ACS (recent hx of PCI 2/2 MT) vs PNA vs possible coronary artery vs aortic dissection (unlikely given that she had normal pulses without deficits or asymmetry, normocardia HR, no neck pain and/or back pain, no trauma, without tearing quality, lasting less than a minute) vs pleuritis vs pericarditis Laboratory Tests 06/17/18 06/17/18 06/17/18 12:23 12:23 12:23 WBC 10.0 RBC 4.86 Hgb 14.3 Hct 41.6 MCV 85.6 MCH 29.3 MCHC 34.3 RDW 13.7 Plt Count 174 D MPV 10.7 D Absolute Neuts (auto) 7.4 Neutrophils % 74.0 Lymphocytes % 19.2 Monocytes % 5.1 Eosinophils % 1.1 Basophils % 0.6 Nucleated RBC % 0 PT with INR 13.70 H INR 1.16 H PTT (Actin FS) 32.5 Sodium Potassium Chloride Carbon Dioxide Anion Gap BUN Creatinine Creat Clearance w eGFR Random Glucose Calcium Total Bilirubin AST ALT Alkaline Phosphatase Creatine Kinase Troponin I Total Protein Albumin Urine HCG, Qual Negative 06/17/18 06/17/18 12:23 15:45 WBC RBC Hgb Hct MCV MCH MCHC RDW Plt Count MPV Absolute Neuts (auto) Neutrophils % Lymphocytes % Monocytes % Eosinophils % Basophils % Nucleated RBC % PT with INR INR PTT (Actin FS) Sodium 139 Potassium 4.2 Chloride 105 Carbon Dioxide 27 Anion Gap 7 L BUN 16 Creatinine 1.1 Creat Clearance w eGFR 54.47 Random Glucose 123 H Calcium 9.1 Total Bilirubin 0.7 AST 21 ALT 37 Alkaline Phosphatase 99 Creatine Kinase 97 Troponin I 0.06 H 0.07 H Total Protein 8.0 Albumin 4.4 Urine HCG, Qual labs wnl except for a slight elevation in troponin 0.06. CXR within normal limits and EKG without ST elevations or depresisons seen. Patient was given aspirin 324 mg full dose (she had 81 mg earlier today; gave the remainder). 06/17/18 14:[address] Jeffrey. He will assess from [facility] results of last cath and dispo from there. Per cardiology, ok to go home after second trop. Second trop showed elevation from 0.[address] Jeffrey was consulted and was ok with tele obs admission for further cardiac work up. Dispo: Admit *DC/Admit/Observation/Transfer Diagnosis at time of Disposition: Chest pain Qualifiers: Chest pain type: unspecified Qualified Code(s): R07.9 - Chest pain, unspecified - Referrals - Patient Instructions - Post Discharge Activity
[2018-06-17] MEDS ORDERED: ASPIRIN 81 MG CHEWABLE TABLETS ONE (12:27)
--- NOTE | 2018-06-17 12:32 | PDOC ---
Attending Attestation - Resident Resident Name: Kiran Jean - ED Attending Attestation I have performed the following: I have examined & evaluated the patient, The case was reviewed & discussed with the resident, I agree w/resident's findings & plan, Exceptions are as noted - HPI HPI: 06/17/18 12:29 43 yo F h/o htn, cad, recently had two stents 4 weeks ago ( sees dr gillespie ) here with intermittent chest pain since yesterday. no f/c no numbness or tingling. took nitro, and relieved her pain. pt at that time originally had only left shoulder pain. one week following her stents she had a repeat cath for recurrent pain. pt stats last night she was feeling pain, took nitro and it resolved. then this am she noticed feeling tired, and nauseas, with pain. no diaphoresis. no sob. no mod factors. no leg swelling. no numbness or tingling. no f/c 06/17/18 13:10 - Physicial Exam PE: 06/17/18 12:31 awake alert lungs clear bilaterally heart rrr no mrg abd soft nt nd. ext wwp no edema. no calf tenderness. pulses symmetric. alert oriented x 3 . - Medical Decision Making 06/17/18 12:31 differential cad, stent occlusion, non stented lesion , infection, plan cxr ekg labs , trop will d/w dr gillespie. asa. will liklely require observation. <Alana Quiñonez - Last Filed: 06/17/18 13:10> - Medical Decision Making EXAM#: TYPE/EXAM: RESULT: [id number] RAD/CHEST X-RAY PORTABLE* Chest pain. Impression. No evidence of active pulmonary disease. Reported By: Karson Farfan MD 06/17/18 13:51 Documentation prepared by CLARK Nettles, acting as medical referral coordinator for Alana Quiñonez MD. 06/17/18 14:00 <Masha Gan - Last Filed: 06/17/18 14:01>
[2018-06-17 12:33] LABS: BASO % 0.6 % (0-2.0); EOS % 1.1 % (0-4.5); HEMATOCRIT 41.6 % (32.4-45.2); HEMOGLOBIN 14.3 GM/dL (10.7-15.3); LYMPH % 19.2 % (8-40); MCH 29.3 pg (25.7-33.7); MCHC 34.3 g/dl (32.0-36.0); MEAN CELL VOLUME 85.6 fl (80-96); MEAN PLT VOLUME 10.7 fl (7.5-11.1); MONO % 5.1 % (3.8-10.2); PLATELET COUNT 174 K/MM3 (134-434); RBC 4.86 M/mm3 (3.60-5.2); RDW 13.7 % (11.6-15.6)
[2018-06-17 12:45] LABS: INR 1.16 (0.83-1.09); PROTHROMBIN TIME (PATIENT) 13.7 SEC (9.7-13.0)
[2018-06-17 12:48] LABS: ACTIVATED PTT 32.5 SECONDS (25.2-36.5)
[2018-06-17 13:36] LABS: ALBUMIN 4.4 g/dl (3.4-5.0); ALK PHOS 99 U/L (45-117); ANION GAP 7 MMOL/L (8-16); BILIRUBIN,TOTAL 0.7 mg/dL (0.2-1); BLOOD UREA NITROGEN 16 mg/dL (7-18); CALCIUM 9.1 mg/dL (8.5-10.1); CHLORIDE 105 mmol/L (98-107); CO2 27 mmol/L (21-32); CREATININE 1.1 mg/dL (0.55-1.3); GLUCOSE,RANDOM 123 mg/dL (74-106); POTASSIUM 4.2 mmol/L (3.5-5.1); SGOT/AST 21 U/L (15-37); SGPT/ALT 37 U/L (13-61); SODIUM 139 mmol/L (136-145)
--- NOTE | 2018-06-17 18:24 | HP ---
CHIEF COMPLAINT: chest pain x 2 days PCP: HISTORY OF PRESENT ILLNESS: 43 y/o F with PMH CAD s/p PCI x 2 (4 weeks prior), with SHAVON in mLAD, prox LAD, former smoker, obese, +cardiac fam hx in father, w/HTN, who presents to the ED c /o 2 day hx chest pain. As per pt, the pain began yesterday and was in her mid- sternal region and was characterized as intermittent "tightness." Non- positional. Pain lasted for few minutes before subsiding. Discomfort was 2/10, and w/o radiation. For this reason, pt took nitro 0.4 at 4-5pm, which alleviated her pain. She was able to sleep. This morning, after pt dropped her kids off at school, the same pain recurred and was a/w nausea without emesis. For this reason, she decided to come to the ED for further evaluation. At this time, denies diaphoresis, palpitations, current N/V, ROCK, fever, chills, SOB, chest pressure, or changes in urinary or bowel function. Pt follows with Dr. Jeffrey. Is scheduled for a stress test. Has had previous ECHO done in his office, however is unsure of exact results. Her current sx today are not the same as her past SD in April. At that time, she had a vague pain in her L arm. 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 quit in April after SD Alcohol: rarely Drugs: used to smoke marijuana Family History: father - cardiac issues, CHF, afib, HTN Allergies No Known Allergies Allergy (Verified 06/17/18 11:41) HOME MEDICATIONS: Home Medications Medication Instructions Recorded Aspirin [ASA -] 81 mg PO DAILY 05/28/18 Atorvastatin Ca [Lipitor] 80 mg PO HS 05/28/18 Lisinopril [Prinivil] 10 mg PO DAILY 05/28/18 Metoprolol Succinate [Toprol Xl] 100 mg PO DAILY 05/28/18 Nitroglycerin Sublingual 0.4 mg SL ASDIR PRN 05/28/18 [Nitrostat -] Ticagrelor [Brilinta] 90 mg PO BID 05/28/18 Spironolactone 12.5 mg PO DAILY 06/17/18 REVIEW OF SYSTEMS CONSTITUTIONAL: Absent: fever, chills, diaphoresis, generalized weakness, malaise, loss of appetite, weight change HEENT: Absent: rhinorrhea, nasal congestion, throat pain, throat swelling, difficulty swallowing, mouth swelling, ear pain, eye pain, visual changes CARDIOVASCULAR: +chest pain Absent: chest pain, syncope, palpitations, irregular heart rate, lightheadedness , peripheral edema RESPIRATORY: Absent: cough, shortness of breath, dyspnea with exertion, orthopnea, wheezing, stridor, hemoptysis GASTROINTESTINAL: Absent: abdominal pain, abdominal distension, nausea, vomiting, diarrhea, constipation, melena, hematochezia GENITOURINARY: Absent: dysuria, frequency, urgency, hesitancy, hematuria, flank pain, genital pain MUSCULOSKELETAL: Absent: myalgia, arthralgia, joint swelling, back pain, neck pain SKIN: Absent: rash, itching, pallor HEMATOLOGIC/IMMUNOLOGIC: Absent: easy bleeding, easy bruising, lymphadenopathy, frequent infections ENDOCRINE: Absent: unexplained weight gain, unexplained weight loss, heat intolerance, cold intolerance NEUROLOGIC: Absent: headache, focal weakness or paresthesias, dizziness, unsteady gait, seizure, mental status changes, bladder or bowel incontinence PSYCHIATRIC: Absent: anxiety, depression, suicidal or homicidal ideation, hallucinations. PHYSICAL EXAMINATION Vital Signs - 24 hr 06/17/18 06/17/18 11:38 12:14 Temperature 98.5 F Pulse Rate 77 Pulse Rate [ 63 Apical] Respiratory 19 18 Rate Blood Pressure 164/73 Blood Pressure 134/65 [Right Arm] O2 Sat by Pulse 99 96 Oximetry (%) GENERAL: Awake, alert, and fully oriented, in no acute distress. HEAD: Normal with no signs of trauma. EYES: Pupils equal, round and reactive to light, extraocular movements intact, sclera anicteric, conjunctiva clear. No lid lag. EARS, NOSE, THROAT: Ears normal, nares patent, oropharynx clear without exudates. Moist mucous membranes. NECK: Normal range of motion, supple LUNGS: Breath sounds equal, clear to auscultation bilaterally. No wheezes, and no crackles. No accessory muscle use. HEART: Regular rate and rhythm, normal S1 and S2 without murmur, rub or gallop. ABDOMEN: Soft, obese, nontender, not distended, normoactive bowel sounds LOWER EXTREMITIES: 2+ pt pulses, warm, well-perfused. No calf tenderness. No peripheral edema. NEUROLOGICAL: Cranial nerves II-XII intact. motor strength 5/5 UE, LE. sensation intact. PSYCHIATRIC: +anxious SKIN: Warm, dry, normal turgor Laboratory Results - last 24 hr 06/17/18 06/17/18 06/17/18 12:23 12:23 15:45 Sodium 139 Potassium 4.2 Chloride 105 BUN 16 Creatinine 1.1 Random Glucose 123 H Total Bilirubin 0.7 AST 21 ALT 37 Troponin I 0.06 H 0.07 H Urine HCG, Qual Negative EKG: NSR, rate 70bpm, qtc 483ms. +TWI lateral leads CXR: without acute pathology ASSESSMENT/PLAN: 43 y/o F with PMH CAD s/p PCI x 2 (4 weeks prior), with SHAVON in mLAD, prox LAD, former smoker, obese, +cardiac fam hx in father, w/HTN, who presents to the ED c /o 2 day hx chest pain. #Atypical angina r/o ACS -2/3 criteria- substernal, relieved by NG -with elevated trop 0.06>0.07. c/t trend until peak -f/u ECHO, a1c -repeat lipid profile in 1 month -Mg>2, K>4 -tele monitoring -cardio consult: Dr. Jeffrey #CAD s/p PCI x 2 -c/w asa, brillinta -as with SHAVON, will likely need p2y12- for at least 1 yr #HTN-currently controlled -c/w toprol, lisinopril #F/E/N no IVF needed at this time continue to follow lytes na controlled/cholesterol controlled/heart healthy diet #PPX DVT: lovenox #Dispo tele-obs Visit type - Emergency Visit Emergency Visit: Yes ED Registration Date: 06/17/18 Care time: The patient presented to the Emergency Department on the above date and was hospitalized for further evaluation of their emergent condition. - New Patient This patient is new to me today: Yes Date on this admission: 06/17/18 - Critical Care Critical Care patient: No
--- NOTE | 2018-06-17 18:59 | HP ---
CHIEF COMPLAINT: chest pain PCP: no pcp; cardio is Dr Jeffrey HISTORY OF PRESENT ILLNESS: 43 y/o female with PMH of CAD s/p PCI one month ago presented to the ED with chest pain that started yesterday. patient states yesterday she had some midsternal chest pain that did not last long; no radiation was involved she described the pain more as a discomfort. she took a nitro at around 4-5 oclock went to lay down then woke up to move to her bed and fell asleep. this morning she woke up the pain was there again and she had some associated nausea, once again the pain only lasted a few minutes, she got nervous and came to the ER. This was different from her pain from when she had her CT back in april where she only presented with right arm discomfort where she was found to have a STEMI and was transferred to [place] for 2 stents. since then she has been taking all of her medications religiously, stopped smoking and exercising more frequently. By the time she got the hospital she did not have anymore symptoms ER course was notable for: (1)trop .06 no EKG changes from previous (2)given ASA 325 x1; echo was done bedside- no signs of tamponade (3)dr jeffrey saw patient ; possibly dresslers? Recent Travel: none PAST MEDICAL HISTORY: see above PAST SURGICAL HISTORY: PCI in april Social History: Smoking:former smoker; quit when she found out she had CT Alcohol:social drinker Drugs: former marijuana; quit when she found out about CT Family History:fathers side extensive cardiac history Allergies No Known Allergies Allergy (Verified 06/17/18 11:41) HOME MEDICATIONS: Home Medications Medication Instructions Recorded Aspirin [ASA -] 81 mg PO DAILY 05/28/18 Atorvastatin Ca [Lipitor] 80 mg PO HS 05/28/18 Lisinopril [Prinivil] 10 mg PO DAILY 05/28/18 Metoprolol Succinate [Toprol Xl] 100 mg PO DAILY 05/28/18 Nitroglycerin Sublingual 0.4 mg SL ASDIR PRN 05/28/18 [Nitrostat -] Ticagrelor [Brilinta] 90 mg PO BID 05/28/18 Spironolactone 12.5 mg PO DAILY 06/17/18 REVIEW OF SYSTEMS CONSTITUTIONAL: Absent: fever, chills, diaphoresis, generalized weakness, malaise, loss of appetite, weight change HEENT: Absent: rhinorrhea, nasal congestion, throat pain, throat swelling, difficulty swallowing, mouth swelling, ear pain, eye pain, visual changes CARDIOVASCULAR: Present: chest pain Absent: syncope, palpitations, irregular heart rate, lightheadedness, peripheral edema RESPIRATORY: Absent: cough, shortness of breath, dyspnea with exertion, orthopnea, wheezing, stridor, hemoptysis GASTROINTESTINAL: Absent: abdominal pain, abdominal distension, nausea, vomiting, diarrhea, constipation, melena, hematochezia GENITOURINARY: Absent: dysuria, frequency, urgency, hesitancy, hematuria, flank pain, genital pain MUSCULOSKELETAL: Absent: myalgia, arthralgia, joint swelling, back pain, neck pain SKIN: Absent: rash, itching, pallor HEMATOLOGIC/IMMUNOLOGIC: Absent: easy bleeding, easy bruising, lymphadenopathy, frequent infections ENDOCRINE: Absent: unexplained weight gain, unexplained weight loss, heat intolerance, cold intolerance NEUROLOGIC: Absent: headache, focal weakness or paresthesias, dizziness, unsteady gait, seizure, mental status changes, bladder or bowel incontinence PSYCHIATRIC: Absent: anxiety, depression, suicidal or homicidal ideation, hallucinations. PHYSICAL EXAMINATION Vital Signs - 24 hr 06/17/18 06/17/18 06/17/18 11:38 11:50 12:14 Temperature 98.5 F Pulse Rate 77 Pulse Rate [ 63 Apical] Respiratory 19 18 Rate Blood Pressure 164/73 Blood Pressure 134/65 [Right Arm] O2 Sat by Pulse 99 98 96 Oximetry (%) GENERAL: Awake, alert, and fully oriented, in no acute distress. EYES: PEERLA: EOMI no scleral icterus NECK: no JVD; no lymphadenopathy LUNGS: CTA B/L; no rales, rhonchi or wheezing . HEART: Regular rate and rhythm, normal S1 and S2 without murmur, rub or gallop. ABDOMEN: soft; nontender; nondistended +BS. . EXTREMITES: warm; well-perfused; no clubbing/cyanosis or edema PSYCHIATRIC: Cooperative. Good eye contact. Appropriate mood and affect. SKIN: Warm, dry, normal turgor, no rashes or lesions noted, normal capillary refill. Laboratory Results - last 24 hr 06/17/18 06/17/18 06/17/18 12:23 12:23 12:23 WBC 10.0 RBC 4.86 Hgb 14.3 Hct 41.6 MCV 85.6 MCH 29.3 MCHC 34.3 RDW 13.7 Plt Count 174 D MPV 10.7 D Absolute Neuts (auto) 7.4 Neutrophils % 74.0 Lymphocytes % 19.2 Monocytes % 5.1 Eosinophils % 1.1 Basophils % 0.6 Nucleated RBC % 0 PT with INR 13.70 H INR 1.16 H PTT (Actin FS) 32.5 Sodium Potassium Chloride Carbon Dioxide Anion Gap BUN Creatinine Creat Clearance w eGFR Random Glucose Calcium Total Bilirubin AST ALT Alkaline Phosphatase Creatine Kinase Troponin I Total Protein Albumin Urine HCG, Qual Negative 06/17/18 06/17/18 12:23 15:45 WBC RBC Hgb Hct MCV MCH MCHC RDW Plt Count MPV Absolute Neuts (auto) Neutrophils % Lymphocytes % Monocytes % Eosinophils % Basophils % Nucleated RBC % PT with INR INR PTT (Actin FS) Sodium 139 Potassium 4.2 Chloride 105 Carbon Dioxide 27 Anion Gap 7 L BUN 16 Creatinine 1.1 Creat Clearance w eGFR 54.47 Random Glucose 123 H Calcium 9.1 Total Bilirubin 0.7 AST 21 ALT 37 Alkaline Phosphatase 99 Creatine Kinase 97 Troponin I 0.06 H 0.07 H Total Protein 8.0 Albumin 4.4 Urine HCG, Qual ASSESSMENT/PLAN: 43 y/o female with PMH of CAD s/p 2 stents, HTN placed 4 weeks ago at [place] presented to the ED with on/off chest pain that started yesterday which was relieved upon arrival to the hospital. #Chest Pain no EKG changes from previous (patient also had picture of EKG done at dr. sterling office on 06/07 - todays shows slight improvement) rule out ACS -trend troponins (only 3 hours were in between 1st and 2nd)- trop #2 at 7pm -echo ordered -dr. jeffrey saw patient in ED ? dresslers no need for heparin gtt or any other intervention right now -c/w brillinta 90 BID, ASA 81 daily, Atorvastatin 80, Spironolactone 12.5, lisinopril 10, toprol 100 XL daily -monitor electrolytes : K>4, Mg>2 #HTN c/w lisinopril 10 c/w toprol 100 XL daily F/E/N not on fluids monitor electrolytes sodium-controlled diet Problem List - Problem (1) Chest pain Code(s): R07.9 - CHEST PAIN, UNSPECIFIED Qualifiers: Chest pain type: unspecified Qualified Code(s): R07.9 - Chest pain, unspecified (2) HTN (hypertension) Code(s): I10 - ESSENTIAL (PRIMARY) HYPERTENSION Visit type - Emergency Visit Emergency Visit: Yes ED Registration Date: 06/17/18 Care time: The patient presented to the Emergency Department on the above date and was hospitalized for further evaluation of their emergent condition. - New Patient This patient is new to me today: Yes Date on this admission: 06/17/18 - Critical Care Critical Care patient: No
--- NOTE | 2018-06-17 19:17 | PN ---
Teaching Attending Note Name of Resident: Cintia Mcdonald ATTENDING PHYSICIAN STATEMENT I saw and evaluated the patient. I reviewed the resident's note and discussed the case with the resident. I agree with the resident's findings and plan as documented. SUBJECTIVE: CC: CP HPI: 43 y/o lady with h/o recent diagnosis of HTN, HLP, CAD s/p STEMI on 05/23, s/p PCI with stenting of LAD who presented this time with chest pain. chest pain started yesterday at rest, it was intermittent and lasted 1-2 min the whole day. NG helped pain at some point. pain did not radiate to arms or neck, and was not associated with SOb or sweating or light headedness. this am she woke up with same sx of intermittent pain that prompted her to come to ER. Of note, patient had chest pain on 05/28 when she presented to the ER and was transferred to [place] where another cath was done and reportedly it did not show anything. last echo was in second admission to [place].. last EKG was on 06/07/18 , of which she has a picture on her phone ( still with some ST elevation and prominent TWI in lateral leads). In ER, bed side echo showed no effusion reportedly. EKG showed TWI in lateral leads. OBJECTIVE: NAD, eating dinner , oriented and cooperative HEENT: MMM, EOMI, round equal pupils, reactive to light. no facial droop, tongue at mid line. no LAP in neck CV: RRR, no MRG , no JVD Lungs: CTAB Abd: soft, NT, Nd , NL BS Ext: no edema, no erythema. ASSESSMENT AND PLAN: 43 y/o lady with h/o recent diagnosis of HTN, HLP, CAD s/p STEMI on 05/23, s/p PCI with stenting of LAD who presented this time with chest pain 1- Chest pain: EKG shows improvement of one from 06/07. trop is slightly elevated but could be coming down form original. had cath 05/28 which did not show thrombosis in stents ( reportedly ) . patient was seen by Dr. Combs , who thinks Kylie syndrome is high in DDx. currently patient is CP free. - repeat trop 6 hours form original , if increase of > 20 % this will be considered concerning . - repeat EKG if CP recurs. - cont Bb and lipitor . HR and BP within goal - cont ASA and Brilinta. - Echo in am - cont spironolactone - check A1c 2- H/o HTN: cont toprol. 3- HLP: lipitor. need repeat lipid panel in 4 weeks 4- DVT Px : Lovenox
[2018-06-17] MEDS ORDERED: ENOXAPARIN NA (PORCINE) 40 MG/0.4 ML DISP.SYRIN SQ ONE (19:25)
[2018-06-17] MEDS: ENOXAPARIN NA (PORCINE) 40 MG/0.4 ML DISP.SYRIN SQ SCH (19:27)
[2018-06-17] MEDS ORDERED: PT OWN MED DRAWER 7, Y5N ONE (20:57)
[2018-06-17] MEDS: TICAGRELOR 90 MG TABLET PO SCH (21:26)
[2018-06-17] MEDS ORDERED: ATORVASTATIN CA 80 MG TABLET (FP) PO SCH (22:00)
[2018-06-18 00:36] VITALS: BMI 38.7
[2018-06-18 07:19] LABS: BASO % 1.1 % (0-2.0); EOS % 3.5 % (0-4.5); HEMATOCRIT 38.4 % (32.4-45.2); HEMOGLOBIN 13.4 GM/dL (10.7-15.3); LYMPH % 33.8 % (8-40); MCH 29.8 pg (25.7-33.7); MEAN CELL VOLUME 85.2 fl (80-96); MEAN PLT VOLUME 10.3 fl (7.5-11.1); MONO % 7.6 % (3.8-10.2); PLATELET COUNT 145 K/MM3 (134-434); RBC 4.51 M/mm3 (3.60-5.2); RDW 13.9 % (11.6-15.6); WHITE BLOOD COUNT 9.4 K/mm3 (4.0-10.0)
[2018-06-18 08:02] LABS: ALBUMIN 3.7 g/dl (3.4-5.0); ALK PHOS 84 U/L (45-117); ANION GAP 7 MMOL/L (8-16); BILIRUBIN,TOTAL 0.5 mg/dL (0.2-1); BLOOD UREA NITROGEN 28 mg/dL (7-18); CALCIUM 8.7 mg/dL (8.5-10.1); CHLORIDE 106 mmol/L (98-107); CO2 25 mmol/L (21-32); CREATININE 0.9 mg/dL (0.55-1.3); GLUCOSE,RANDOM 100 mg/dL (74-106); MAGNESIUM 2.4 mg/dL (1.8-2.4); PHOSPHOROUS 4.2 mg/dL (2.5-4.9); POTASSIUM 4.1 mmol/L (3.5-5.1); SGOT/AST 19 U/L (15-37); SGPT/ALT 36 U/L (13-61); SODIUM 138 mmol/L (136-145)
--- NOTE | 2018-06-18 09:40 | CON.CARD ---
Consult Consult Specialty:: cardiology Reason for Consultation:: chest pain (post STEMI) - History of Present Illness Chief Complaint: PT A&Ox3; asymptomatic History of Present Illness: 43 yo white woman with zPMHx STEMI--> coronary angiogram showing 1 VD-->stents of proxiaml and mid LAD at [facility] earlier this month with repeat coronary angiogram done a week later when pt returned with chest pain (no further PCI required at that time), ,cad, here with intermittent chest pain since yesterday. no f/c no numbness or tingling. took nitro, and relieved her pain. pt at that time originally had only left shoulder pain. one week following her stents she had a repeat cath for recurrent pain. pt stats last night she was feeling pain, took nitro and it resolved. then this am she noticed feeling tired, and nauseas, with pain. no diaphoresis. no sob. no mod factors. no leg swelling. no numbness or tingling. no f/c 06/17/18 13:10 - History Source History Provided By: Patient, Family Member, Medical Record Limitations to Obtaining History: No Limitations - Past Medical History Cardio/Vascular: Yes: CHF Pulmonary: Yes: Sleep Apnea (r/o) ...LMP: 05/27/18 ...: No Psych: Yes: Anxiety, Panic - Past Surgical History Past Surgical History: Yes: Stent (proximal and mid LAD franc STEMI) - Alcohol/Substance Use Hx Alcohol Use: No - Smoking History Smoking history: Former smoker Have you smoked in the past 12 months: Yes Aproximately how many cigarettes per day: 10 If you are a former smoker, when did you quit?: 05/23/18 Home Medications - Allergies Allergies/Adverse Reactions: Allergies Allergy/AdvReac Type Severity Reaction Status Date / Time No Known Allergies Allergy Verified 06/17/18 11:41 - Home Medications Home Medications: Ambulatory Orders Aspirin [ASA -] 81 mg PO DAILY 05/28/18 Atorvastatin Ca [Lipitor] 80 mg PO HS 05/28/18 Lisinopril [Prinivil] 10 mg PO DAILY 05/28/18 Metoprolol Succinate [Toprol Xl] 100 mg PO DAILY 05/28/18 Nitroglycerin Sublingual [Nitrostat -] 0.4 mg SL ASDIR PRN 05/28/18 Ticagrelor [Brilinta -] 90 mg PO BID 05/28/18 Spironolactone 12.5 mg PO DAILY 06/17/18 Family Disease History - Family Disease History Family Disease History: Heart Disease: Father ([place] om tanner 60s) - Risk Factors Known Risk Factors: Yes: Age, Family History, Hypercholesterolemia, Hypertension , Physical Inactivity, Smoking Vital Signs: Vital Signs Temperature 98.0 F 06/18/18 06:00 Pulse Rate 60 06/18/18 06:00 Respiratory Rate 17 06/18/18 06:00 Blood Pressure 110/52 L 06/18/18 06:00 O2 Sat by Pulse Oximetry (%) 96 06/18/18 04:00 Constitutional: Yes: Anxious Eyes: Yes: WNL HENT: Yes: WNL Neck: Yes: WNL Respiratory: Yes: WNL Gastrointestinal: Yes: WNL Renal/: No: Anuria Cardiovascular: Yes: Regular Rate and Rhythm JVD: No Carotid Bruit: No PMI: Non-Displaced Heart Sounds: Yes: S1, S2, S4 Musculoskeletal: Yes: WNL Extremities: Yes: WNL Edema: No Peripheral Pulses WNL: Yes Integumentary: Yes: WNL Neurological: Yes: WNL ...Motor Strength: WNL Psychiatric: Yes: WNL - Other Data Labs, Other Data: CBC, BMP 06/18/18 06:17 06/18/18 06:17 INR, PTT INR 1.16 (0.83-1.09) H 06/17/18 12:23 Troponin, BNP 06/17/18 06/17/18 06/17/18 12:23 15:45 21:00 Troponin I 0.06 H 0.07 H 0.07 H 06/18/18 01:07 Troponin I 0.06 H Troponin, BNP 06/17/18 06/17/18 06/17/18 12:23 15:45 21:00 Troponin I 0.06 H 0.07 H 0.07 H 06/18/18 01:07 Troponin I 0.06 H Abnormal Lab Results 06/17/18 06/18/18 06/18/18 21:00 01:07 06:17 Anion Gap 7 L BUN 28 H Troponin I 0.07 H 0.06 H Imaging - Results Chest X-ray: Image Reviewed EKG: Image Reviewed Problem List - Problems (1) Severe anxiety with panic Code(s): F41.0 - PANIC DISORDER [EPISODIC PAROXYSMAL ANXIETY] (2) Family history of coronary artery disease Code(s): Z82.49 - FAMILY HX OF ISCHEM HEART DIS AND OTH DIS OF [facility] (3) HTN (hypertension) Code(s): I10 - ESSENTIAL (PRIMARY) HYPERTENSION (4) Hyperglycemia Code(s): R73.9 - HYPERGLYCEMIA, UNSPECIFIED (5) Hyperlipidemia Code(s): E78.5 - HYPERLIPIDEMIA, UNSPECIFIED (6) Obese Code(s): E66.9 - OBESITY, UNSPECIFIED (7) STEMI (ST elevation myocardial infarction) Code(s): I21.3 - ST ELEVATION (STEMI) MYOCARDIAL INFARCTION OF [facility] SITE (8) Sedentary lifestyle Code(s): Z91.89 - OT PERSONAL RISK FACTORS, NOT ELSEWHERE CLASSIFIED (9) CHF (congestive heart failure) Assessment/Plan: Pt had mod-severe anteroapical and inferoapical systolic dysfunction consistent with wraparound LAD, with mild anterior basal hypokinesis. Pt has been on metoprolol, lisinopril, and spironolactone since. F/u ECHO for LVEF, regional wall motion evaluation. Code(s): I50.9 - HEART FAILURE, UNSPECIFIED (10) Atypical chest pain Assessment/Plan: TNI 0.06; f/u serially, and if no significant increase, and EKG (presently improved in STT changes from those noted during STEMI), will discharge home with f/u as cardiac outpatient, including cardiac rehabilitation. Code(s): R07.89 - OTHER CHEST PAIN (11) Sleep apnea Assessment/Plan: consider sleep studies as outpatient. Code(s): G47.30 - SLEEP APNEA, UNSPECIFIED
[2018-06-18] MEDS ORDERED: SPIRONOLACTONE 25 MG TABLET (FP) PO SCH (10:00)
[2018-06-18] MEDS ORDERED: LISINOPRIL 10 MG TABLET (FP) PO SCH (10:00)
[2018-06-18] MEDS ORDERED: ASPIRIN 81 MG CHEWABLE TABLETS PO SCH (10:00)
[2018-06-18] MEDS: ENOXAPARIN NA (PORCINE) 40 MG/0.4 ML DISP.SYRIN SQ SCH (10:15)
[2018-06-18] MEDS: TICAGRELOR 90 MG TABLET PO SCH (11:08)
--- NOTE | 2018-06-18 11:08 | EKG ---
Test Reason : Blood Pressure : / mmHG Vent. Rate : 070 BPM Atrial Rate : 070 BPM P-R Int : 172 ms QRS Dur : 098 ms QT Int : 448 ms P-R-T Axes : 022 259 095 degrees QTc Int : 483 ms NORMAL SINUS RHYTHM LOW VOLTAGE QRS INFERIOR INFARCT (CITED ON OR BEFORE 23-MAY-2018) ANTEROLATERAL INFARCT (CITED ON OR BEFORE 23-MAY-2018) ABNORMAL ECG Confirmed by MIKI HAWK MD ([id number]) on 06/18/2018 11:07:59 AM Referred By: Confirmed By:MIKI HAWK MD
--- NOTE | 2018-06-18 11:31 | ECHO ---
Name: TARUN CAMERON Exam:Adult Echocardiogram Study Date: 06/18/2018 10:22 AM Age: 43 yrs Reason For Study: CHEST PAIN Height: 63 in Weight: 235 lb BSA: 2.1 m2 MMode/2D Measurements & Calculations IVSd: 0.82 cm Ao root diam: 2.6 cm LVIDd: 5.1 cm LA dimension: 3.7 cm LVIDs: 3.2 cm LVPWd: 0.79 cm EDV(Teich): 124.4 ml LVOT diam: 2.3 cm ESV(Teich): 41.3 ml Doppler Measurements & Calculations MV E max david: 74.5 cm/sec Ao V2 max: 177.0 cm/sec MV A max david: 53.3 cm/sec Ao max P.5 mmHg MV E/A: 1.4 Ao V2 mean: 128.7 cm/sec MV dec time: 0.20 sec Ao mean P.5 mmHg Ao V2 VTI: 34.9 cm STEVEN(I,D): 1.5 cm2 STEVEN(V,D): 1.3 cm2 LV V1 max P.4 mmHg SV(LVOT): 51.0 ml LV V1 mean P.93 mmHg LV V1 max: 59.2 cm/sec LV V1 mean: 46.7 cm/sec LV V1 VTI: 12.7 cm Med Peak E' David: 10.8 cm/sec Med E/e': 6.9 Lat Peak E' David: 5.6 cm/sec Lat E/e': 13.4 Left Ventricle Left ventricular systolic function is normal. Ejection Fraction = 55-60%. Right Ventricle The right ventricle is normal in size and function. Atria The left atrium is mildly dilated. Mitral Valve The mitral valve is normal in structure and function. There is no mitral valve stenosis. There is mil d mitral regurgitation. Tricuspid Valve The tricuspid valve is normal in structure and function. There is mild tricuspid regurgitation. Aortic Valve The aortic valve opens well. No hemodynamically significant valvular aortic stenosis. No aortic regur gitation is present. Pulmonic Valve The pulmonic valve is not well seen, but is grossly normal. There is no pulmonic valvular stenosis. Great Vessels The aortic root is normal size. Pericardium/Pleura There is no pericardial effusion. Interpretation Summary Left ventricular systolic function is normal. Ejection Fraction = 55-60%. The right ventricle is normal in size and function. The left atrium is mildly dilated. There is mild mitral regurgitation. There is mild tricuspid regurgitation. There is no pericardial effusion. MD Mendieta *Aislinn 06/18/2018 11:30 AM
--- NOTE | 2018-06-18 13:33 | PN ---
Teaching Attending Note Name of Resident: Cintia Mcdonald ATTENDING PHYSICIAN STATEMENT I saw and evaluated the patient. I reviewed the resident's note and discussed the case with the resident. I agree with the resident's findings and plan as documented. SUBJECTIVE: no fever or chills. continued to have this intermittent pain last night /, lasting for , 1min. no OSB OBJECTIVE: NAD CV: RRR, no MRG , no JVD Lungs: CTAB Ext: no edema, no erythema. ASSESSMENT AND PLAN: 43 y/o lady with h/o recent diagnosis of HTN, HLP, CAD s/p STEMI on 05/23, s/p PCI with stenting of LAD who presented this time with chest pain 1- Chest pain: No new ischemic changes. trop trended down. Echo with no effusion and NL EF with minimal valvular changes. - cont home meds - scheduled for stress test next week as outpt - f/u with card - A1c nl 2- H/o HTN: cont toprol. 3- HLP: lipitor. need repeat lipid panel in 4 weeks DC home
--- NOTE | 2018-06-18 14:12 | DS ---
Physical Exam: SUBJECTIVE: Patient seen and examined OBJECTIVE: Vital Signs Period Temp Pulse Resp BP Sys/Hoang Pulse Ox Last 24 Hr 97.9 F-98.1 F 54-66 17-18 110-137/52-84 96-100 PHYSICAL EXAM GENERAL: The patient is awake, alert, and fully oriented, in no acute distress. HEAD: Normal with no signs of trauma. EYES: PERRL, extraocular movements intact, sclera anicteric, conjunctiva clear. ENT: Ears normal, nares patent, oropharynx clear without exudates, moist mucous membranes. NECK: Trachea midline, full range of motion, supple. LUNGS: Breath sounds equal, clear to auscultation bilaterally, no wheezes, no crackles, no accessory muscle use. HEART: Regular rate and rhythm, S1, S2 without murmur, rub or gallop. ABDOMEN: Soft, nontender, nondistended, normoactive bowel sounds, no guarding, no rebound, no hepatosplenomegaly, no masses. EXTREMITIES: 2+ pulses, warm, well-perfused, no edema. NEUROLOGICAL: Cranial nerves II through XII grossly intact. Normal speech, gait not observed. PSYCH: Normal mood, normal affect. SKIN: Warm, dry, normal turgor, no rashes or lesions noted. LABS Laboratory Results - last 24 hr 06/17/18 06/17/18 06/18/18 15:45 21:00 01:07 WBC RBC Hgb Hct MCV MCH MCHC RDW Plt Count MPV Absolute Neuts (auto) Neutrophils % Lymphocytes % Monocytes % Eosinophils % Basophils % Nucleated RBC % Sodium Potassium Chloride Carbon Dioxide Anion Gap BUN Creatinine Creat Clearance w eGFR Random Glucose Hemoglobin A1c % Calcium Phosphorus Magnesium Total Bilirubin AST ALT Alkaline Phosphatase Troponin I 0.07 H 0.07 H 0.06 H Total Protein Albumin 06/18/18 06/18/18 06/18/18 06:17 06:17 06:17 WBC 9.4 RBC 4.51 Hgb 13.4 Hct 38.4 MCV 85.2 MCH 29.8 MCHC 35.0 RDW 13.9 Plt Count 145 MPV 10.3 Absolute Neuts (auto) 5.1 Neutrophils % 54.0 D Lymphocytes % 33.8 D Monocytes % 7.6 Eosinophils % 3.5 D Basophils % 1.1 Nucleated RBC % 0 Sodium 138 Potassium 4.1 Chloride 106 Carbon Dioxide 25 Anion Gap 7 L BUN 28 H Creatinine 0.9 Creat Clearance w eGFR 68.66 Random Glucose 100 Hemoglobin A1c % 5.5 Calcium 8.7 Phosphorus 4.2 Magnesium 2.4 Total Bilirubin 0.5 AST 19 ALT 36 Alkaline Phosphatase 84 Troponin I Total Protein 7.0 Albumin 3.7 HOSPITAL COURSE: Date of Admission:06/17/18 43 y/o female with PMH of CAD s/p 2 stents 4 weeks ago at [place] presented to the ED with on/off chest paiun that started two days ago which was relieved upon arrival to the hospital. Patient states that the pain was midsternal on/ off relieved by nitro and then fell aslpeep. she woke up next morning still having the discomfort with some associated nausea she got nervous and came to the hospital. EKG was done with no changes, trops were trended bumped up to 0.07 but downtrended she got an echo which was normal- she was seen by her cardio dr jeffrey and she was stable to be dc home- with an appt to see him next week and hes in the process of setting up cardiac rehab Date of Discharge: 06/18/18 Minutes to complete discharge: 39 Discharge Summary Reason For Visit: CHEST PAIN Condition: Stable - Instructions Diet, Activity, Other Instructions: You came to the emergency room with complaints of intermittent chest pain. We did an EKG , an echo and monitored your cardiac enzymes. You were seen by your mercantile reporter, Dr. Jeffrey and deemed you stable to be discharged home. Please resume all of your home medications We are referring you to an primary care physician with whom we would like you to follow up with in a week Please see Dr. Jeffrey within one week Please have your lipid panel repeated in 4 weeks *if you begin to experience any worsening chest pains, trouble breathing, nausea /vomiting please return to the emergency room immediately Referrals: Camden Herring MD [Staff Physician] - 1 Week Michael Jeffrey MD [Staff Physician] - 1 Week Disposition: HOME - Home Medications Comprehensive Discharge Medication List: Ambulatory Orders Aspirin [ASA -] 81 mg PO DAILY 05/28/18 Atorvastatin Ca [Lipitor] 80 mg PO HS 05/28/18 Lisinopril [Prinivil] 10 mg PO DAILY 05/28/18 Metoprolol Succinate [Toprol Xl] 100 mg PO DAILY 05/28/18 Nitroglycerin Sublingual [Nitrostat -] 0.4 mg SL ASDIR PRN 05/28/18 Ticagrelor [Brilinta -] 90 mg PO BID 05/28/18 Spironolactone 12.5 mg PO DAILY 06/17/18 Problem List - Problems (1) Chest pain Code(s): R07.9 - CHEST PAIN, UNSPECIFIED Qualifiers: Chest pain type: unspecified Qualified Code(s): R07.9 - Chest pain, unspecified (2) HTN (hypertension) Code(s): I10 - ESSENTIAL (PRIMARY) HYPERTENSION This patient is new to me today: No Emergency Visit: Yes ED Registration Date: 06/17/18 Care time: The patient presented to the Emergency Department on the above date and was hospitalized for further evaluation of their emergent condition. Critical Care patient: No - Discharge Referral Referred to [facility] No
[2018-06-18 16:14] VITALS: BP 129/58; PULSE 58; TEMP 98.9
--- NOTE | 2018-06-18 17:42 | PN ---
Progress Note, Physician Chief Complaint: Pt A&OX3; no symptoms. OOB in chair. History of Present Illness: 43 yo white woman with zPMHx STEMI--> coronary angiogram showing 1 VD-->stents of proxiaml and mid LAD at [facility] earlier this month with repeat coronary angiogram done a week later when pt returned with chest pain (no further PCI required at that time), ,cad, here with intermittent chest pain since yesterday. no f/c no numbness or tingling. took nitro, and relieved her pain. pt at that time originally had only left shoulder pain. one week following her stents she had a repeat cath for recurrent pain. pt stats last night she was feeling pain, took nitro and it resolved. then this am she noticed feeling tired, and nauseas, with pain. no diaphoresis. no sob. no mod factors. no leg swelling. no numbness or tingling. no f/c 06/17/18 13:10 - Current Medication List Current Medications: Active Medications Aspirin (Asa -) 81 mg PO DAILY [facility] Last Admin: 06/18/18 10:08 Dose: 81 mg Atorvastatin Calcium (Lipitor -) 80 mg PO HS [facility] Last Admin: 06/17/18 21:26 Dose: 80 mg Enoxaparin Sodium (Lovenox -) 40 mg SQ DAILY [facility] Last Admin: 06/18/18 10:15 Dose: Not Given Lisinopril (Prinivil) 10 mg PO DAILY [facility] Last Admin: 06/18/18 10:15 Dose: 10 mg Metoprolol Succinate (Toprol Xl -) 100 mg PO DAILY [facility] Last Admin: 06/18/18 10:15 Dose: 100 mg Spironolactone (Aldactone -) 12.5 mg PO DAILY [facility] Last Admin: 06/18/18 10:07 Dose: 12.5 mg Ticagrelor (Brilinta -) 90 mg PO BID [facility] Last Admin: 06/18/18 11:08 Dose: 90 mg - Objective Vital Signs: Vital Signs Temperature 98.9 F 06/18/18 16:11 Pulse Rate 58 L 06/18/18 16:11 Respiratory Rate 20 06/18/18 16:11 Blood Pressure 129/58 L 06/18/18 16:11 O2 Sat by Pulse Oximetry (%) 100 06/18/18 09:00 Constitutional: Yes: No Distress, Other (alopecia) Eyes: Yes: WNL HENT: Yes: WNL Neck: Yes: WNL Cardiovascular: Yes: WNL Respiratory: Yes: WNL Gastrointestinal: Yes: Soft, Abdomen, Obese ...Rectal Exam: Yes: Deferred Genitourinary: No: Anuria Breast(s): Yes: WNL Musculoskeletal: Yes: WNL Extremities: Yes: WNL Edema: No Peripheral Pulses WNL: Yes Integumentary: Yes: WNL Neurological: Yes: WNL Psychiatric: Yes: WNL Labs: CBC, BMP 06/18/18 06:17 06/18/18 06:17 INR, PTT INR 1.16 (0.83-1.09) H 06/17/18 12:23 Abnormal Lab Results 06/17/18 06/18/18 06/18/18 21:00 01:07 06:17 Anion Gap 7 L BUN 28 H Troponin I 0.07 H 0.06 H - ....Imaging EKG: Image Reviewed Other: Image Reviewed (telemetry: NSR; no arrhythmias) Problem List - Problems (1) Severe anxiety with panic Code(s): F41.0 - PANIC DISORDER [EPISODIC PAROXYSMAL ANXIETY] (2) Family history of coronary artery disease Code(s): Z82.49 - FAMILY HX OF ISCHEM HEART DIS AND OTH DIS OF [facility] (3) HTN (hypertension) Code(s): I10 - ESSENTIAL (PRIMARY) HYPERTENSION (4) Hyperglycemia Code(s): R73.9 - HYPERGLYCEMIA, UNSPECIFIED (5) Hyperlipidemia Code(s): E78.5 - HYPERLIPIDEMIA, UNSPECIFIED (6) Obese Code(s): E66.9 - OBESITY, UNSPECIFIED (7) STEMI (ST elevation myocardial infarction) Assessment/Plan: TNI 0.06-->0.07--0.06 No acute STT changes on EKG. Will discharge home, and f/u as outpt, with cardiac rehabilitation planned at [facility]. Code(s): I21.3 - ST ELEVATION (STEMI) MYOCARDIAL INFARCTION OF [facility] SITE (8) Sedentary lifestyle Code(s): Z91.89 - OTH PERSONAL RISK FACTORS, NOT ELSEWHERE CLASSIFIED (9) CHF (congestive heart failure) Assessment/Plan: Pt had mod-severe anteroapical and inferoapical systolic dysfunction consistent with wraparound LAD, with mild anterior basal hypokinesis. Pt has been on metoprolol, lisinopril, and spironolactone since. F/u ECHO for LVEF, regional wall motion evaluation. Addendum: today's ECHO report notes normal LVEF; no regional wall motion abnormalities mentioned. Continue above medications pres Code(s): I50.9 - HEART FAILURE, UNSPECIFIED (10) Atypical chest pain Code(s): R07.89 - OTHER CHEST PAIN (11) Sleep apnea Code(s): G47.30 - SLEEP APNEA, UNSPECIFIED
== END 2018-06-18 19:35 | disposition home or self-care (01) ==
LOC: JER 11:27 → JERBED 17:15 → J4S 19:43
PROVIDERS: ADMIT Internal Medicine; ATTEND Internal Medicine
DX: R07.89 Other chest pain (principal); I11.0 Hypertensive heart disease with heart failure; E78.5 Hyperlipidemia, unspecified; F41.0 Panic disorder [episodic paroxysmal anxiety]; I21.3 ST elevation (STEMI) myocardial infarction of unspecified site; I50.9 Heart failure, unspecified; G47.30 Sleep apnea, unspecified; Z91.89 Other specified personal risk factors, not elsewhere classified; E66.9 Obesity, unspecified; Z68.38 Body mass index [BMI] 38.0-38.9, adult; Z87.891 Personal history of nicotine dependence; Z79.82 Long term (current) use of aspirin; Z95.5 Presence of coronary angioplasty implant and graft; Z82.49 Family history of ischemic heart disease and other diseases of the circulatory system
CPT/HCPCS: 36415; 71045-TC-FY; 80053; 82550; 83036; 83735; 84100; 84484; 84703; 85025; 85610; 85730; 93005; 93010; 93306-TC; 99285-25; G0378

== ENCOUNTER 2018-07-16 21:57 | Observation (INO) | payer BC ==
[2018-07-16 22:09] VITALS: BMI 37.8
[2018-07-16 23:20] LABS: BASO % 1.3 % (0-2.0); EOS % 2.1 % (0-4.5); HEMATOCRIT 40.8 % (32.4-45.2); HEMOGLOBIN 13.4 GM/dL (10.7-15.3); LYMPH % 29.6 % (8-40); MCH 28.4 pg (25.7-33.7); MCHC 32.9 g/dl (32.0-36.0); MEAN CELL VOLUME 86.4 fl (80-96); MONO % 8.1 % (3.8-10.2); NEUT % 58.9 % (42.8-82.8); PLATELET COUNT 186 K/MM3 (134-434); RBC 4.73 M/mm3 (3.60-5.2)
--- NOTE | 2018-07-16 23:27 | PDOC ---
History of Present Illness - General Chief Complaint: Chest Pain Stated Complaint: CHEST PAIN Time Seen by Provider: 07/16/18 22:43 - History of Present Illness Initial Comments: 07/17/18 01:49 43F of HTN, CAD, and AZ (stents placed 05/23) here today for evaluation of chest pain. The patient reports that she has had 5 hours of constant, dull, left sided chest pain. Denies SOB. Denies N/V. Denies abdominal pain. She reports that her current pain feels like the pain she had when she had the AZ except for the Took an aspirin this morning 82mg. Patient denies headache, lightheadedness. Denies fever, chills. Denies shortness of breath. Denies nausea, vomiting, diarrhea, abdominal pain. Denies lower extremity edema. No relief of the pain when she bends forward. Allergies: NKA Rn Mental Health: Michael Jeffrey Past History - Past Medical History Allergies/Adverse Reactions: Allergies Allergy/AdvReac Type Severity Reaction Status Date / Time No Known Allergies Allergy Verified 06/17/18 11:41 Home Medications: Ambulatory Orders Aspirin [ASA -] 81 mg PO DAILY 05/28/18 Atorvastatin Ca [Lipitor] 80 mg PO HS 05/28/18 Lisinopril [Prinivil] 10 mg PO DAILY 05/28/18 Metoprolol Succinate [Toprol Xl] 100 mg PO DAILY 05/28/18 Ticagrelor [Brilinta -] 90 mg PO BID 05/28/18 Spironolactone 12.5 mg PO DAILY 06/17/18 Cardiac Disorders: Yes (AZ W/ STENTS X2) COPD: No HTN: Yes - Surgical History Cardiac Surgery: Yes (STENTS X2) - Immunization History Immunization Up to Date: Yes - Suicide/Smoking/Psychosocial Hx Smoking History: Unknown if ever smoked Have you smoked in the past 12 months: Yes Number of Cigarettes Smoked Daily: 10 If you are a former smoker, when did you quit?: 05/23/18 'Breaking Loose' booklet given: 06/17/18 Hx Alcohol Use: No Drug/Substance Use Hx: No Substance Use Type: Marijuana Hx Substance Use Treatment: No Cardiac Specific PMH - Complaint Specific PMHX Abdominal Aortic Aneurysm: No Angina: No Cardiac Arrhythmia: No Cardiac Stent: Yes (05/23/18, 2x stents inc LAD) Review of Systems - Review of Systems Able to Perform ROS?: Yes Is the patient limited Chinese proficient: No Constitutional: No: Symptoms Reported HEENTM: No: Symptoms Reported Respiratory: No: Symptoms reported Cardiac (ROS): Yes: See HPI ABD/GI: No: Symptoms Reported : No: Symptoms Reported Musculoskeletal: No: Symptoms Reported All Other Systems: Reviewed and Negative *Physical Exam - Vital Signs Last Vital Signs Temp Pulse Resp BP Pulse Ox 98.1 F 51 L 20 109/62 97 07/16/18 22:04 07/16/18 22:09 07/16/18 22:04 07/16/18 22:09 07/16/18 22:09 - Physical Exam General Appearance: Yes: Appropriately Dressed, Obese. No: Apparent Distress HEENT: positive: EOMI, JACQUELINE, Normal ENT Inspection Respiratory/Chest: positive: Lungs Clear, Normal Breath Sounds. negative: Chest Tender, Respiratory Distress Cardiovascular: positive: S1, S2, Bradycardia. negative: Regular Rhythm Gastrointestinal/Abdominal: positive: Normal Bowel Sounds, Flat, Soft. negative : Tender Musculoskeletal: positive: Normal Inspection. negative: CVA Tenderness Extremity: positive: Normal Capillary Refill, Normal Inspection, Normal Range of Motion Integumentary: positive: Normal Color, Dry, Warm Neurologic: positive: Fully Oriented, Alert, Normal Mood/Affect, Normal Response , Motor Strength 5/5 ED Treatment Course - LABORATORY CBC & Chemistry Diagram: 07/16/18 23:12 07/16/18 23:12 - ADDITIONAL ORDERS Additional order review: Laboratory Results 07/16/18 07/16/18 07/16/18 23:18 23:12 23:12 PT with INR 13.30 H INR 1.13 H PTT (Actin FS) 36.7 H Sodium Potassium Chloride Carbon Dioxide Anion Gap BUN Creatinine Creat Clearance w eGFR Random Glucose Calcium Total Bilirubin AST ALT Alkaline Phosphatase Troponin I Total Protein Albumin TSH 1.25 Blood Type O POSITIVE Antibody Screen Negative 07/16/18 23:12 PT with INR INR PTT (Actin FS) Sodium 142 Potassium 4.4 Chloride 108 H Carbon Dioxide 28 Anion Gap 6 L BUN 14 Creatinine 0.9 Creat Clearance w eGFR 68.66 Random Glucose 89 Calcium 9.7 Total Bilirubin 0.6 AST 18 ALT 33 Alkaline Phosphatase 94 Troponin I < 0.02 Total Protein 7.8 Albumin 4.1 TSH Blood Type Antibody Screen 07/16/18 23:12 RBC 4.73 MCV 86.4 MCHC 32.9 RDW 15.0 MPV 10.0 Neutrophils % 58.9 Lymphocytes % 29.6 Monocytes % 8.1 Eosinophils % 2.1 Basophils % 1.3 - RADIOLOGY Radiology Studies Ordered: Category Date Time Status CHEST PA & LAT [RAD] Stat Radiology 07/17/18 00:01 Taken - Medications Given in the ED: ED Medications Discontinued Medications Generic Name Dose Route Start Last Admin Trade Name Gail PRN Reason Stop Dose Admin Aspirin 325 mg 07/17/18 00:47 07/17/18 01:14 Asa - PO 07/17/18 00:48 Not Given ONCE ONE Aspirin 240 mg 07/17/18 01:08 07/17/18 01:14 Asa - PO 07/17/18 01:09 240 mg ONCE ONE Administration Medical Decision Making - Medical Decision Making 07/17/18 01:57 43f with pmh of recent AZ presenting with chest pain. Kylie syndrome vs angina vs non-cardiac etiology. EKG: Sinus rhythm with PVC's and bigeminy. Negative trops. Spoke to Dr. Ferrari, rn trauma consulting marine engineer who recommended admission to tele obs , low suspicion for angina due to negative trops after 8 hours. Patient showed us EKG from 1 week ago that she had photographed on her phone, no changes compared to today's. Patient now asymptomatic. *DC/Admit/Observation/Transfer Diagnosis at time of Disposition: Chest pain - Discharge Dispostion Decision to Admit order: Yes Decision to Admit order Date/Time: Decision to Admit Order Category Date Time Status Decision to Admit to Hospital Routine Admission 07/17/18 02:04 Ordered - Referrals - Patient Instructions - Post Discharge Activity
[2018-07-16 23:34] LABS: INR 1.13 (0.83-1.09); PROTHROMBIN TIME (PATIENT) 13.3 SEC (9.7-13.0)
[2018-07-16 23:37] LABS: ACTIVATED PTT 36.7 SECONDS (25.2-36.5)
[2018-07-16 23:49] LABS: ALBUMIN 4.1 g/dl (3.4-5.0); ALK PHOS 94 U/L (45-117); ANION GAP 6 MMOL/L (8-16); BILIRUBIN,TOTAL 0.6 mg/dL (0.2-1); BLOOD UREA NITROGEN 14 mg/dL (7-18); CALCIUM 9.7 mg/dL (8.5-10.1); CHLORIDE 108 mmol/L (98-107); CO2 28 mmol/L (21-32); CREATININE 0.9 mg/dL (0.55-1.3); GLUCOSE,RANDOM 89 mg/dL (74-106); POTASSIUM 4.4 mmol/L (3.5-5.1); SGOT/AST 18 U/L (15-37); SGPT/ALT 33 U/L (13-61); SODIUM 142 mmol/L (136-145); TOT PROT 7.8 g/dl (6.4-8.2)
[2018-07-17] MEDS ORDERED: ASPIRIN 325 MG TABLET PO ONE (00:47)
[2018-07-17] MEDS ORDERED: ASPIRIN 325 MG TABLET ONE (01:06)
[2018-07-17] MEDS ORDERED: ASPIRIN 81 MG CHEWABLE TABLETS ONE (01:08)
[2018-07-17] MEDS ORDERED: ASPIRIN 81 MG CHEWABLE TABLETS PO ONE (01:08)
--- NOTE | 2018-07-17 01:09 | PDOC ---
Documentation entered by Porfirio Roldan SCRIBE, acting as scribe for Bigg Chaudhary MD. Bigg Chaudhary MD: This documentation has been prepared by the Jamar brooke Daniel, SCRIBE, under my direction and personally reviewed by me in its entirety. I confirm that the documentation accurately reflects all work, treatment, procedures, and medical decision making performed by me. Attending Attestation - Resident Resident Name: Jonel Stover - ED Attending Attestation I have performed the following: I have examined & evaluated the patient, The case was reviewed & discussed with the resident, I agree w/resident's findings & plan, Exceptions are as noted - HPI HPI: 07/16/18 23:01 The patient is a 43 year old female with a past medical history of HTN, CAD, and AR (stents placed 05/23) here today for evaluation of chest pain. The patient reports that she has had 5 hours of constant, dull, left sided chest pain. Denies SOB. Denies N/V. Denies abdominal pain. She reports that her current pain feels like the pain she had when she had the AR. Patient denies headache, lightheadedness. Denies fever, chills. Denies shortness of breath. Denies nausea, vomiting, diarrhea, abdominal pain. Denies lower extremity edema. Allergies: NKA Primary Mill Roller: Michael Jeffrey - Physicial Exam PE: 07/17/18 00:31 "GENERAL: Awake, alert, and fully oriented, in no acute distress. HEAD: No signs of trauma EYES: PERRLA, EOMI, sclera anicteric, conjunctiva clear ENT: Auricles normal inspection, hearing grossly normal, nares patent, oropharynx clear without exudates. Moist mucosa NECK: Nontender, no stepoffs, Normal ROM, supple, no lymphadenopathy, JVD, or masses LUNGS: Breath sounds equal, clear to auscultation bilaterally. No wheezes, and no crackles HEART: Regular rate and rhythm, normal S1 and S2, no murmurs, rubs or gallops ABDOMEN: Soft, nontender, normoactive bowel sounds. No guarding, no rebound. No masses EXTREMITIES: Normal range of motion, no edema. No clubbing or cyanosis. No cords, erythema, or tenderness NEUROLOGICAL: Cranial nerves II through XII intact. 5/5 strength and sensation in all extremities, Normal speech, normal gait, normal cerebellar function SKIN: Warm, Dry, normal turgor, no rashes or lesions noted. - Medical Decision Making 07/17/18 00:31 43 F with chest pain reminiscent of her recent AR. Pt's EKG today shows bigeminy but no new ischemic changes compared to EKG done 1 month ago. - Labs, trop, BNP - CXR 07/17/18 01:09 trop negative Case discussed with cards, who recommends tele obs for serial trops. No indication for txfer for cath at this time.
--- NOTE | 2018-07-17 02:19 | HP ---
CHIEF COMPLAINT: chest pain PCP: HISTORY OF PRESENT ILLNESS: 43F of HTN, CAD, and MT (2 drug eluding stents placed 05/23) c/o chest pain which started around 5pm on 07/16 while patient was resting. Patient was about 2/ 10, no radiation, did not take NGL for it. Pain subsided by itself. Does not use cocaine. Reports compliance with Brillanta and ASA. ER course was notable for: (1) ekg (2) cxr (3) asa Recent Travel: no PAST MEDICAL HISTORY: HTN, CAD, and MT (2 stents placed 05/23-drug eluding) PAST SURGICAL HISTORY:no Social History: Smoking: quit april 2018 Alcohol:no Drugs: no Family History: father with unspecified heart disease in his 40s Allergies No Known Allergies Allergy (Verified 06/17/18 11:41) HOME MEDICATIONS: Home Medications Medication Instructions Recorded Aspirin [ASA -] 81 mg PO DAILY 05/28/18 Atorvastatin Ca [Lipitor] 80 mg PO HS 05/28/18 Lisinopril [Prinivil] 10 mg PO DAILY 05/28/18 Metoprolol Succinate [Toprol Xl] 100 mg PO DAILY 05/28/18 Ticagrelor [Brilinta -] 90 mg PO BID 05/28/18 Spironolactone 12.5 mg PO DAILY 06/17/18 REVIEW OF SYSTEMS CONSTITUTIONAL: Absent: fever, chills, diaphoresis, generalized weakness, malaise, loss of appetite, weight change HEENT: Absent: rhinorrhea, nasal congestion, throat pain, throat swelling, difficulty swallowing, mouth swelling, ear pain, eye pain, visual changes CARDIOVASCULAR: Absent:, syncope, palpitations, irregular heart rate, lightheadedness, peripheral edema present- chest pain RESPIRATORY: Absent: cough, shortness of breath, dyspnea with exertion, orthopnea, wheezing, stridor, hemoptysis GASTROINTESTINAL: Absent: abdominal pain, abdominal distension,, vomiting, diarrhea, constipation , melena, hematochezia present- nausea GENITOURINARY: Absent: dysuria, frequency, urgency, hesitancy, hematuria, flank pain, genital pain MUSCULOSKELETAL: Absent: myalgia, arthralgia, joint swelling, back pain, neck pain SKIN: Absent: rash, itching, pallor HEMATOLOGIC/IMMUNOLOGIC: Absent: easy bleeding, easy bruising, lymphadenopathy, frequent infections ENDOCRINE: Absent: unexplained weight gain, unexplained weight loss, heat intolerance, cold intolerance NEUROLOGIC: Absent: headache, focal weakness or paresthesias, dizziness, unsteady gait, seizure, mental status changes, bladder or bowel incontinence PSYCHIATRIC: Absent: anxiety, depression, suicidal or homicidal ideation, hallucinations. PHYSICAL EXAMINATION Vital Signs - 24 hr 07/16/18 07/16/18 22:04 22:09 Temperature 98.1 F Pulse Rate 39 L Pulse Rate [ 51 L Right Radial] Respiratory 20 Rate Blood Pressure 151/53 L Blood Pressure 109/62 [Right Arm] O2 Sat by Pulse 97 97 Oximetry (%) GENERAL: Awake, alert, and fully oriented, in no acute distress, obese HEAD: Normal with no signs of trauma. EYES: Pupils equal, round and reactive to light, extraocular movements intact, sclera anicteric, conjunctiva clear. No lid lag. EARS, NOSE, THROAT: Ears normal, nares patent, oropharynx clear without exudates. Moist mucous membranes. NECK: Normal range of motion, supple without lymphadenopathy, JVD, or masses. LUNGS: Breath sounds equal, clear to auscultation bilaterally. No wheezes, and no crackles. No accessory muscle use. HEART: Regular rate and rhythm, normal S1 and S2 without murmur, rub or gallop. ABDOMEN: Soft, obese nontender, not distended, normoactive bowel sounds, no guarding, no rebound, no masses. MUSCULOSKELETAL: Normal range of motion at all joints. No bony deformities or tenderness. No CVA tenderness. UPPER EXTREMITIES: 2+ pulses, warm, well-perfused. No cyanosis. No clubbing. No peripheral edema. LOWER EXTREMITIES: 2+ pulses, warm, well-perfused. No calf tenderness. No peripheral edema. NEUROLOGICAL: Cranial nerves II-XII intact. Normal speech. PSYCHIATRIC: Cooperative. Good eye contact. Appropriate mood and affect. SKIN: Warm, dry, normal turgor, no rashes or lesions noted, normal capillary refill. Laboratory Results - last 24 hr 07/16/18 07/16/18 07/16/18 23:12 23:12 23:12 WBC 12.0 H RBC 4.73 Hgb 13.4 Hct 40.8 MCV 86.4 MCH 28.4 MCHC 32.9 RDW 15.0 Plt Count 186 D MPV 10.0 Absolute Neuts (auto) 7.1 Neutrophils % 58.9 Lymphocytes % 29.6 Monocytes % 8.1 Eosinophils % 2.1 Basophils % 1.3 Nucleated RBC % 0 PT with INR 13.30 H INR 1.13 H PTT (Actin FS) 36.7 H Sodium 142 Potassium 4.4 Chloride 108 H Carbon Dioxide 28 Anion Gap 6 L BUN 14 Creatinine 0.9 Creat Clearance w eGFR 68.66 Random Glucose 89 Calcium 9.7 Total Bilirubin 0.6 AST 18 ALT 33 Alkaline Phosphatase 94 Troponin I < 0.02 Total Protein 7.8 Albumin 4.1 TSH Blood Type Antibody Screen 07/16/18 07/16/18 23:12 23:18 WBC RBC Hgb Hct MCV MCH MCHC RDW Plt Count MPV Absolute Neuts (auto) Neutrophils % Lymphocytes % Monocytes % Eosinophils % Basophils % Nucleated RBC % PT with INR INR PTT (Actin FS) Sodium Potassium Chloride Carbon Dioxide Anion Gap BUN Creatinine Creat Clearance w eGFR Random Glucose Calcium Total Bilirubin AST ALT Alkaline Phosphatase Troponin I Total Protein Albumin TSH 1.25 Blood Type O POSITIVE Antibody Screen Negative EKG - q waves in anterior -lateral leads, ventricular bigeminy cxr reviewed ASSESSMENT/PLAN: #Chest pain in high risk patient -tele/obs -trend troponin -NGL SL prn -echo -consult cardiology -ASA -Brillanta -high dose statin #Bradycardia- asymptomatic? - may be side effect of Toprolol -monitor on telemetry -no Bblockers or CCB #HTN -lisinopril #DVT ppx -heparin sc Visit type - Emergency Visit Emergency Visit: Yes ED Registration Date: 07/17/18 Care time: The patient presented to the Emergency Department on the above date and was hospitalized for further evaluation of their emergent condition. - New Patient This patient is new to me today: Yes Date on this admission: 07/17/18 - Critical Care Critical Care patient: No
[2018-07-17] MEDS ORDERED: NITROGLYCERIN SUBLINGUAL 1/150 0.4 MG TAB SL PRN (02:25)
[2018-07-17] MEDS ORDERED: LISINOPRIL 10 MG TABLET (FP) PO SCH (10:00)
[2018-07-17] MEDS ORDERED: TICAGRELOR 90 MG TABLET PO SCH (10:00)
[2018-07-17] MEDS ORDERED: SPIRONOLACTONE 25 MG TABLET (FP) PO SCH (10:00)
[2018-07-17] MEDS ORDERED: ASPIRIN 81 MG CHEWABLE TABLETS PO SCH (10:00)
[2018-07-17] MEDS ORDERED: HEPARIN NA (PORCINE) 5,000 UNITS/ML 1ML VIAL SQ SCH (10:00)
[2018-07-17] MEDS ORDERED: PT OWN MED DRAWER 7, Y5N ONE (10:15)
--- NOTE | 2018-07-17 11:58 | PN ---
Progress Note (short form) - Note Progress Note: Coverage for Dr. Chai Jeffrey Chief Complaint: Chart reviewed, events noted, recurrent atypical chest pain History of Present Illness: Seen and examined on telemetry. Full consult dictated Echocardiography noted revealed normal LV size and function with LVEF 55-60%, mild MR and TR Medications: Current Medications Aspirin (Asa -) 81 mg PO DAILY [facility] Last Admin: 07/17/18 10:17 Dose: 81 mg Atorvastatin Calcium (Lipitor -) 80 mg PO HS [facility] Heparin Sodium (Porcine) (Heparin -) 5,000 unit SQ BID [facility] Last Admin: 07/17/18 10:17 Dose: 5,000 unit Lisinopril (Prinivil) 10 mg PO DAILY [facility] Last Admin: 07/17/18 10:17 Dose: 10 mg Metoprolol Succinate (Toprol Xl -) 75 mg PO DAILY [facility] Nitroglycerin (Nitrostat -) 0.4 mg SL Q5M PRN PRN Reason: FOR CHEST PAIN Spironolactone (Aldactone -) 12.5 mg PO DAILY [facility] Ticagrelor (Brilinta -) 90 mg PO BID [facility] Last Admin: 07/17/18 10:40 Dose: 90 mg Home Medications Medication Instructions Recorded Aspirin [ASA -] 81 mg PO DAILY 05/28/18 Atorvastatin Ca [Lipitor] 80 mg PO HS 05/28/18 Lisinopril [Prinivil] 10 mg PO DAILY 05/28/18 Metoprolol Succinate [Toprol Xl] 100 mg PO DAILY 05/28/18 Ticagrelor [Brilinta -] 90 mg PO BID 05/28/18 Spironolactone 12.5 mg PO DAILY 06/17/18 Atorvastatin Ca [Lipitor] 80 mg PO HS tablet 07/17/18 Nitroglycerin Sublingual 0.4 mg SL Q5M PRN tab 07/17/18 [Nitrostat -] Review of Systems Cardiovascular: As noted above Respiratory: denies: Cough or Sputum Production Gastrointestinal: denies: Nausea, Vomiting, Diarrhea, Constipation or Abdominal Discomfort Musculoskeletal: No Symptoms Reported Endocrine: No Symptoms Reported Vital Signs: Last Vital Signs Temp Pulse Resp BP Pulse Ox 98.0 F 61 18 102/84 100 07/17/18 09:04 07/17/18 09:04 07/17/18 09:04 07/17/18 09:04 07/17/18 09:04 Intake & Output 07/14/18 07/15/18 07/16/18 07/17/18 23:59 23:59 23:59 23:59 Weight 227 lb 227 lb 3.2 oz Constitutional: No Distress, Calm, Thin Neck: Supple Negative JVD Respiratory: Clear to A&P Bilaterally Cardiovascular: S1 S2 Regular Rate and Rhythm Grade 1/6 JOSY Gastrointestinal: Soft Benign Normal Bowel Sounds Ext: No Edema Labs: Troponin, BNP 07/16/18 07/17/18 23:12 05:10 Troponin I < 0.02 0.02 CBC, BMP 07/16/18 23:12 07/16/18 23:12 Hepatic Panel Total Bilirubin 0.6 mg/dL (0.2-1) 07/16/18 23:12 AST 18 U/L (15-37) 07/16/18 23:12 ALT 33 U/L (13-61) 07/16/18 23:12 Alkaline Phosphatase 94 U/L (45-117) 07/16/18 23:12 Albumin 4.1 g/dl (3.4-5.0) 07/16/18 23:12 INR, PTT INR 1.13 (0.83-1.09) H 07/16/18 23:12 Assessment/Plan ASSESSMENT: 1. Chest pain syndrome atypical for angina pectoris, differential includes GERD vs. musculo-skeletal 2. CAD post STEMI post LAD/SHAVON angina pectoris 3. LV systolic/diastolic dysfunction with clinical class 0 NYHA classification LV failure 4. HTN/HCVD 5. Hyperlipidemia 6. Exogenous obesity 7. Prior history of tobacco abuse PLAN: 1. Continue Toprol XL 2. Continue Lisinopril 3. Continue Lipitor 4. Continue ASA and Brilinta 5. Continue Aldactone 6. Add PPI or H2 blockers 7. Can be D/C home from the cardiovascular point of view and F/U with Dr. Chai Jeffrey this coming week and to continue cardiac rehab Thank you for the consult Robyn Browne M.D.
[2018-07-17 12:11] VITALS: BP 106/60; PULSE 58; TEMP 98
--- NOTE | 2018-07-17 12:28 | CONS ---
DATE OF CONSULTATION: 07/17/2018 REQUESTING PHYSICIAN: Hospitalist service. Coverage for Dr. Michael Jeffrey. CHIEF COMPLAINT: Chest discomfort, cardiovascular evaluation. This is a 43-year-old, obese female with known history of coronary artery disease status post recent YT-ibzvalw-zrgxbmkuc myocardial infarction status post percutaneous coronary intervention, SHAVON, LAD; angina pectoris; systolic/diastolic left ventricular dysfunction with clinical class 0 [place] [employer] classification left ventricular failure; hypertensive cardiovascular disease; hypercholesterolemia; tobacco abuse until recently; who presented to [facility] Room with recurrent chest discomfort. Patient was recently evaluated for chest discomfort at [facility] and subsequently was discharged. Post percutaneous coronary intervention, patient, in addition, had recurrent chest pain. Repeat left heart cardiac catheterization, coronary angiography was performed which revealed patent stent. Chest discomfort has been described as retrosternal tightness which is transitory, and it subsides spontaneously within a few minutes. Patient reported radiation to the left shoulder. Patient denied any associated symptomatology, i.e. diaphoresis. Patient denies any dyspnea, orthopnea, paroxysmal nocturnal dyspnea, or peripheral edema. Patient has been reporting intermittent palpitations. Patient denies any dizziness or lightheadedness. PAST MEDICAL HISTORY: Coronary artery disease status post recent QV-opitolj-wfhgsplap myocardial infarction, post percutaneous coronary intervention, SHAVON, LAD; angina pectoris; systolic/diastolic left ventricular dysfunction with clinical class 0 [place] [employer] classification left ventricular failure; hypertensive cardiovascular disease; hypercholesterolemia. PAST SURGICAL HISTORY: None. SOCIAL HISTORY: A smoker up until recently. FAMILY HISTORY: Brother has coronary artery disease. ALLERGIES: None reported. MEDICAL THERAPY AT HOME: Included Ecotrin 81 mg once a day, Lipitor 80 mg once a day, lisinopril 20 mg once a day, metoprolol succinate 100 mg once a day, Brilinta 90 mg twice a day, Aldactone 12.5 mg once a day. REVIEW OF SYSTEMS: Head and Neck: Denies headache, photophobia, blurring of vision. Respiratory: No cough or sputum production. Cardiovascular: As noted above. Gastrointestinal: No nausea, vomiting, diarrhea, abdominal discomfort. Genitourinary: No symptoms reported. Musculoskeletal: No symptoms reported. PHYSICAL EXAMINATION: Vital Signs: Blood pressure is 102/84 mmHg, pulse rate is 61 beats per minute. Head and Neck: Pupils reactive to light and accommodation. Extraocular muscles are intact. Anicteric sclerae. Negative JVD. No bruit appreciated. Chest: Clear to auscultation and percussion. Cardiovascular: S1 and S2 regular. Grade 1/6 systolic ejection murmur. No clicks or gallops. Abdomen: Soft, benign. Normoactive bowel sounds. Extremities: Negative edema. Intact distal pulses. No calf tenderness Electrocardiogram revealed sinus rhythm with premature ventricular contractions; evidence of an anteroseptal wall myocardial infarction, age undetermined; and non-specific ST segment T-wave abnormality. CPK, troponin-I levels were noted. CBC revealed a white cell count 12.0, hemoglobin 13.4, platelet count 186. Basic metabolic profile revealed sodium 142, potassium 4.4, BUN 14, creatinine 0.9, glucose 89. INR 1.13. ASSESSMENT: 1. Chest pain syndrome, atypical for angina pectoris. Differential diagnosis includes gastroesophageal reflux disease versus musculoskeletal discomfort. 2. Coronary artery disease post TP-levctci-aauqnbidi myocardial infarction, post left anterior descending drug-eluting stent; angina pectoris. 3. Left ventricular systolic/diastolic dysfunction with clinical class 0 [place] [employer] classification left ventricular failure. 4. Hypertensive cardiovascular disease. 5. Hypercholesterolemia. 6. Exogenous obesity. 7. Prior history of tobacco abuse. RECOMMENDATION: 1. Continuation of Toprol-XL therapy. 2. Continuation of lisinopril therapy at the current dosage. 3. Continuation of Lipitor therapy. 4. Continuation of aspirin and Brilinta therapies. 5. Continuation of Aldactone therapy. 6. Addition of proton pump inhibitor or H2 malu therapy considering the above-noted presentation. 7. Patient can be discharged home from the cardiovascular point of view and to follow up with Dr. Michael Jeffrey this coming week and to continue cardiac rehabilitation program which has been initiated. 8. Echocardiography study which was performed recently, dated June 18, 2018, revealed normal left ventricular size and systolic function with estimated LVEF between 55% to 60%, normal right ventricular size and systolic function, mild left atrial dilatation, mild mitral and tricuspid valve regurgitation. Thank you for your kind referral. RISHI KEATING M.D. [id number]
--- NOTE | 2018-07-17 14:10 | EKG ---
Test Reason : Blood Pressure : / mmHG Vent. Rate : 072 BPM Atrial Rate : 047 BPM P-R Int : 198 ms QRS Dur : 096 ms QT Int : 454 ms P-R-T Axes : 025 093 078 degrees QTc Int : 497 ms SINUS BRADYCARDIA WITH FREQUENT PREMATURE VENTRICULAR COMPLEXES CANNOT RULE OUT INFERIOR INFARCT (CITED ON OR BEFORE 23-MAY-2018) ANTEROLATERAL INFARCT (CITED ON OR BEFORE 23-MAY-2018) ABNORMAL ECG Confirmed by MD FREDA, BRYAN ([id number]) on 07/17/2018 2:09:46 PM Referred By: Confirmed By:BRYAN BARBA MD
--- NOTE | 2018-07-17 14:11 | EKG ---
Test Reason : Blood Pressure : / mmHG Vent. Rate : 076 BPM Atrial Rate : 076 BPM P-R Int : 164 ms QRS Dur : 098 ms QT Int : 416 ms P-R-T Axes : 044 239 098 degrees QTc Int : 468 ms SINUS RHYTHM WITH FREQUENT PREMATURE VENTRICULAR COMPLEXES IN A PATTERN OF BIGEMINY POSSIBLE LEFT ATRIAL ENLARGEMENT LOW VOLTAGE QRS INFERIOR INFARCT (CITED ON OR BEFORE 23-MAY-2018) ANTEROLATERAL INFARCT (CITED ON OR BEFORE 23-MAY-2018) ABNORMAL ECG Confirmed by MD FREDA, BRYAN ([id number]) on 07/17/2018 2:11:04 PM Referred By: Confirmed By:BRYAN BARBA MD
[2018-07-17] MEDS ORDERED: ATORVASTATIN CA 80 MG TABLET (FP) PO SCH (22:00)
[2018-07-18] MEDS ORDERED: metoPROLOL SUCCINATE 25 MG TAB.SR.24H (FP) PO SCH (10:00)
== END 2018-07-17 14:07 | disposition home or self-care (01) ==
LOC: JER 21:57 → JERBED 07-17 02:04 → J4S 07-17 09:45
PROVIDERS: ADMIT Internal Medicine; ATTEND Internal Medicine
PROC: 3E013GC Introduction of Other Therapeutic Substance into Subcutaneous Tissue, Percutaneous Approach (ICD-10-PCS; principal; 2018-07-17)
DX: R07.89 Other chest pain (principal); R00.1 Bradycardia, unspecified; I11.0 Hypertensive heart disease with heart failure; I25.10 Atherosclerotic heart disease of native coronary artery without angina pectoris; I25.2 Old myocardial infarction; Z95.5 Presence of coronary angioplasty implant and graft; E66.9 Obesity, unspecified; Z68.37 Body mass index [BMI] 37.0-37.9, adult; I50.1 Left ventricular failure, unspecified; E78.5 Hyperlipidemia, unspecified; Z87.891 Personal history of nicotine dependence
CPT/HCPCS: 36415; 71046-TC-FY; 80053; 82550; 82553; 84443; 84484; 85025; 85610; 85730; 86850; 86900; 86901; 93005; 93010; 99283-25; G0378; J1644

== ENCOUNTER 2020-12-14 22:39 | Observation (INO) | payer BC ==
[2020-12-14 23:52] LABS: BASO % 1.3 % (0-2.0); EOS % 1.9 % (0-4.5); HEMATOCRIT 37.9 % (32.4-45.2); HEMOGLOBIN 12.9 GM/dL (10.7-15.3); LYMPH % 31.3 % (8-40); MCH 28.6 pg (25.7-33.7); MCHC 34.1 g/dl (32.0-36.0); MEAN PLT VOLUME 8.3 fl (7.5-11.1); MONO % 6.7 % (3.8-10.2); NEUT % 58.8 % (42.8-82.8); PLATELET COUNT 231 10^3/uL (134-434); RBC 4.51 M/mm3 (3.60-5.2); RDW 13.4 % (11.6-15.6); WHITE BLOOD COUNT 12.4 K/mm3 (4.0-10.0)
[2020-12-15 00:03] LABS: CHLORIDE 105 mmol/L (98-107); SODIUM 139 mmol/L (136-145)
[2020-12-15 00:05] LABS: CALCIUM 8.8 mg/dL (8.5-10.1)
[2020-12-15 00:06] LABS: ALBUMIN 3.9 g/dl (3.4-5.0); ANION GAP 8 MMOL/L (8-16); BLOOD UREA NITROGEN 18.8 mg/dL (7-18); CO2 26 mmol/L (21-32); GLUCOSE,RANDOM 127 mg/dL (74-106); MAGNESIUM 2.1 mg/dL (1.8-2.4)
[2020-12-15 00:09] LABS: SGOT/AST 21 U/L (15-37); SGPT/ALT 33 U/L (13-61)
[2020-12-15 00:10] LABS: BILIRUBIN,TOTAL 0.5 mg/dL (0.2-1); TOT PROT 7.6 g/dl (6.4-8.2)
[2020-12-15 00:11] LABS: ALK PHOS 79 U/L (45-117)
[2020-12-15] MEDS ORDERED: HEPARIN NA (PORCINE) 5,000 UNITS/ML 1ML VIAL ONE (09:57)
[2020-12-15] MEDS ORDERED: HEPARIN NA (PORCINE) 5,000 UNITS/ML 1ML VIAL SQ SCH (10:00)
[2020-12-15] MEDS: ASPIRIN 81 MG CHEWABLE TABLETS PO SCH (11:30)
[2020-12-15] MEDS: HEPARIN NA (PORCINE) 5,000 UNITS/ML 1ML VIAL SQ SCH ×2 (12:27→22:38)
[2020-12-15] MEDS ORDERED: ASPIRIN 81 MG CHEWABLE TABLETS ONE (12:29)
[2020-12-15] MEDS ORDERED: LISINOPRIL 20 MG TABLET PO SCH (12:34)
[2020-12-15] MEDS ORDERED: SPIRONOLACTONE 25 MG TABLET PO SCH (12:34)
[2020-12-15] MEDS: LISINOPRIL 20 MG TABLET PO SCH (13:00)
[2020-12-15] MEDS: SPIRONOLACTONE 25 MG TABLET PO SCH (13:05)
[2020-12-15] MEDS ORDERED: LISINOPRIL 20 MG TABLET ONE (13:19)
[2020-12-15] MEDS ORDERED: SPIRONOLACTONE 25 MG TABLET ONE (13:20)
[2020-12-15 13:57] LABS: BASO % 1.3 % (0-2.0); EOS % 1.6 % (0-4.5); HEMATOCRIT 38.5 % (32.4-45.2); HEMOGLOBIN 13.1 GM/dL (10.7-15.3); LYMPH % 29.2 % (8-40); MCH 28.4 pg (25.7-33.7); MEAN CELL VOLUME 83.8 fl (80-96); MEAN PLT VOLUME 8.3 fl (7.5-11.1); MONO % 3.9 % (3.8-10.2); PLATELET COUNT 239 10^3/uL (134-434); RBC 4.59 M/mm3 (3.60-5.2); RDW 13.5 % (11.6-15.6); WHITE BLOOD COUNT 9.7 K/mm3 (4.0-10.0)
[2020-12-15 14:23] LABS: CHLORIDE 105 mmol/L (98-107); SODIUM 137 mmol/L (136-145)
[2020-12-15 14:24] LABS: CALCIUM 8.5 mg/dL (8.5-10.1)
[2020-12-15 14:25] LABS: ANION GAP 5 MMOL/L (8-16); BLOOD UREA NITROGEN 17.1 mg/dL (7-18); CO2 27 mmol/L (21-32); GLUCOSE,RANDOM 139 mg/dL (74-106)
[2020-12-15] MEDS ORDERED: TICAGRELOR 90 MG TABLET PO SCH (22:00)
[2020-12-15] MEDS ORDERED: ATORVASTATIN CA 80 MG TABLET (FP) PO SCH (22:00)
[2020-12-16 01:03] VITALS: BMI 42.8
[2020-12-16 08:14] LABS: BASO % 1.1 % (0-2.0); EOS % 2.8 % (0-4.5); LYMPH % 41.1 % (8-40); MCH 28.8 pg (25.7-33.7); MCHC 34.3 g/dl (32.0-36.0); MEAN PLT VOLUME 8.7 fl (7.5-11.1); PLATELET COUNT 227 10^3/uL (134-434); RBC 4.16 M/mm3 (3.60-5.2); RDW 13.5 % (11.6-15.6); WHITE BLOOD COUNT 8.4 K/mm3 (4.0-10.0)
[2020-12-16 08:42] LABS: BLOOD UREA NITROGEN 19.2 mg/dL (7-18); CALCIUM 8.6 mg/dL (8.5-10.1); CREATININE 0.9 mg/dL (0.55-1.3)
[2020-12-16] MEDS: ASPIRIN 81 MG CHEWABLE TABLETS PO SCH (09:47)
[2020-12-16] MEDS: LISINOPRIL 20 MG TABLET PO SCH (09:47)
[2020-12-16] MEDS: HEPARIN NA (PORCINE) 5,000 UNITS/ML 1ML VIAL SQ SCH (09:47)
[2020-12-16] MEDS: SPIRONOLACTONE 25 MG TABLET PO SCH (09:47)
[2020-12-16] MEDS ORDERED: LISINOPRIL 20 MG TABLET PO SCH (10:00)
[2020-12-16] MEDS ORDERED: SPIRONOLACTONE 25 MG TABLET PO SCH (10:00)
[2020-12-16 13:52] VITALS: BP 105/62; PULSE 71; TEMP 98
== END 2020-12-16 16:43 | disposition home or self-care (01) ==
LOC: JER 22:39 → JERBED 12-15 00:45 → UNDOADMOB 12-15 00:45 → INTOOBSV 12-15 00:45 → JERBED 12-15 02:06 → J4W 12-15 21:20 → JERBED 12-15 21:20 → J4W 12-15 21:20 → UNDODISOB 12-16 16:43
PROVIDERS: ADMIT Internal Medicine; ATTEND Internal Medicine
PROC: 3E023GC Introduction of Other Therapeutic Substance into Muscle, Percutaneous Approach (ICD-10-PCS; principal; 2020-12-15)
DX: R00.2 Palpitations (principal); I49.8 Other specified cardiac arrhythmias; I25.2 Old myocardial infarction; Z95.5 Presence of coronary angioplasty implant and graft; Z87.891 Personal history of nicotine dependence; I10 Essential (primary) hypertension; E78.5 Hyperlipidemia, unspecified; E66.01 Morbid (severe) obesity due to excess calories; Z68.41 Body mass index [BMI] 40.0-44.9, adult; R07.89 Other chest pain; Z29.9 Encounter for prophylactic measures, unspecified
CPT/HCPCS: 36415; 71046-TC-FY; 80048; 80053; 80061; 82550; 83735; 84443; 84484; 84703; 85025; 93005; 93010; 99285-25; C9803; G0378; J1644; U0003; U0005

== ENCOUNTER 2022-07-28 14:05 | Observation (INO) | payer BC ==
[2022-07-28] MEDS ORDERED: ONDANSETRON 4 MG/2 ML VIAL IVPUSH ONE (15:19)
[2022-07-28] MEDS ORDERED: MAG HYDROX/AL HYDROX/SIMETH 30 ML UNIT-DOSE CUP PO ONE (15:19)
[2022-07-28] MEDS ORDERED: FAMOTIDINE 20 MG/50 ML IVPB 20 MG/50 ML MG IVPB ONE ×2 (15:19→16:58)
[2022-07-28] MEDS ORDERED: MAG HYDROX/AL HYDROX/SIMETH 30 ML UNIT-DOSE CUP ONE (16:57)
[2022-07-28] MEDS ORDERED: ONDANSETRON 4 MG/2 ML VIAL ONE (16:57)
[2022-07-28 18:51] LABS: BASO % 0.5 % (0-2.0); EOS % 0.4 % (0-4.5); HEMATOCRIT 38.2 % (32.4-45.2); LYMPH % 17.8 % (8-40); MCH 28.1 pg (25.7-33.7); MCHC 34.1 g/dl (32.0-36.0); MEAN CELL VOLUME 82.3 fl (80-96); MEAN PLT VOLUME 8.6 fl (7.5-11.1); MONO % 10.7 % (3.8-10.2); NEUT % 70.6 % (42.8-82.8); PLATELET COUNT 228 10^3/uL (134-434); RBC 4.64 M/mm3 (3.60-5.2); RDW 14.1 % (11.6-15.6); WHITE BLOOD COUNT 12.2 K/mm3 (4.0-10.0)
[2022-07-28 19:40] LABS: POTASSIUM 4.3 mmol/L (3.5-5.1)
[2022-07-28 19:42] LABS: ALBUMIN 3.8 g/dl (3.4-5.0); CALCIUM 8.9 mg/dL (8.5-10.1)
[2022-07-28 19:43] LABS: BLOOD UREA NITROGEN 11.5 mg/dL (7-18)
[2022-07-28 19:44] LABS: CREATININE 0.8 mg/dL (0.55-1.3)
[2022-07-28 19:47] LABS: BILIRUBIN,TOTAL 0.5 mg/dL (0.2-1)
[2022-07-28 19:50] LABS: N-TERMINAL BNP 140.4 pg/ml (5-125)
[2022-07-28] MEDS ORDERED: ACETAMINOPHEN 325 MG TABLET (FP) PO PRN (22:49)
[2022-07-28] MEDS ORDERED: DOCUSATE SODIUM 100 MG CAPSULE (FP) PO PRN (22:49)
[2022-07-28] MEDS ORDERED: ONDANSETRON 4 MG/2 ML VIAL IVPUSH PRN (23:59)
[2022-07-29 03:58] VITALS: BMI 42.0
[2022-07-29 07:03] LABS: BASO % 0.7 % (0-2.0); EOS % 2.7 % (0-4.5); HEMATOCRIT 34.2 % (32.4-45.2); HEMOGLOBIN 11.9 GM/dL (10.7-15.3); MCH 28.6 pg (25.7-33.7); MCHC 34.8 g/dl (32.0-36.0); MEAN CELL VOLUME 82.2 fl (80-96); MEAN PLT VOLUME 8.4 fl (7.5-11.1); MONO % 12.8 % (3.8-10.2); NEUT % 54.8 % (42.8-82.8); PLATELET COUNT 210 10^3/uL (134-434); RBC 4.16 M/mm3 (3.60-5.2); RDW 13.9 % (11.6-15.6); WHITE BLOOD COUNT 9.9 K/mm3 (4.0-10.0)
[2022-07-29 07:24] LABS: POTASSIUM 4.1 mmol/L (3.5-5.1)
[2022-07-29 07:25] LABS: CALCIUM 8.4 mg/dL (8.5-10.1)
[2022-07-29 07:26] LABS: BLOOD UREA NITROGEN 13.9 mg/dL (7-18); MAGNESIUM 2.3 mg/dL (1.8-2.4)
[2022-07-29 07:29] LABS: CREATININE 0.8 mg/dL (0.55-1.3)
[2022-07-29 08:51] VITALS: BP 136/73; PULSE 88; RESP 18; TEMP 98.6
[2022-07-29] MEDS ORDERED: SPIRONOLACTONE 25 MG TABLET PO SCH (10:00)
[2022-07-29] MEDS ORDERED: ASPIRIN 81 MG CHEWABLE TABLETS PO SCH (10:00)
[2022-07-29] MEDS ORDERED: LISINOPRIL 10 MG TABLET PO SCH (10:00)
== END 2022-07-29 13:14 | disposition home or self-care (01) ==
LOC: JERFT 14:05 → JER 14:05 → JERBED 23:54 → J4S 07-29 01:22
PROVIDERS: ADMIT Internal Medicine; ATTEND Internal Medicine
PROC: 3E033GC Introduction of Other Therapeutic Substance into Peripheral Vein, Percutaneous Approach (ICD-10-PCS; principal; 2022-07-28)
DX: R07.89 Other chest pain (principal); M79.602 Pain in left arm; R11.2 Nausea with vomiting, unspecified; I50.9 Heart failure, unspecified; I11.0 Hypertensive heart disease with heart failure; Z82.49 Family history of ischemic heart disease and other diseases of the circulatory system; R73.9 Hyperglycemia, unspecified; E78.5 Hyperlipidemia, unspecified; I25.10 Atherosclerotic heart disease of native coronary artery without angina pectoris; E66.9 Obesity, unspecified; Z68.41 Body mass index [BMI] 40.0-44.9, adult; R00.2 Palpitations; Z91.89 Other specified personal risk factors, not elsewhere classified; F41.0 Panic disorder [episodic paroxysmal anxiety]; G47.30 Sleep apnea, unspecified; Z95.5 Presence of coronary angioplasty implant and graft; Z86.73 Personal history of transient ischemic attack (TIA), and cerebral infarction without residual deficits
CPT/HCPCS: 0241U-QW; 36415; 71046-TC-FY; 80048; 80053; 83690; 83735; 83880; 84100; 84484; 85025; 93005; 93010; 96365; 96375; 99285-25; G0378

== ENCOUNTER 2022-09-09 04:36 | Day surgery (SDC) | payer BC ==
[2022-09-08 10:07] VITALS: BMI 39.7
[2022-09-09] MEDS ORDERED: PROPOFOL 20 ML ONE (14:57)
[2022-09-09] MEDS ORDERED: MIDAZOLAM HCL 2 MG/2 ML SINGLE DOSE VIAL ONE (14:57)
[2022-09-09] MEDS ORDERED: ceFAZolin SODIUM 1 GM VIAL IVPB ONE (15:16)
[2022-09-09] MEDS ORDERED: BETAMET ACET/BETAMET NA PH 30 MG/5 ML VIAL ONE (15:18)
[2022-09-09] MEDS ORDERED: ceFAZolin SODIUM 1 GM VIAL ONE (15:18)
[2022-09-09] MEDS ORDERED: LIDOCAINE HCL/PF 2% SDV 5ML VIAL ONE (15:18)
[2022-09-09] MEDS ORDERED: KETOROLAC TROMETHAMINE 30 MG/1 ML VIAL ONE (15:18)
[2022-09-09] MEDS ORDERED: DEXAMETHASONE SOD PHOSPHATE 4 MG/1 ML VIAL ONE (15:18)
[2022-09-09 16:54] VITALS: TEMP 97.3
[2022-09-09 17:02] VITALS: BP 102/68; PULSE 50; RESP 16
== END 2022-09-09 16:30 | disposition home or self-care (01) ==
LOC: JASU-SURG 04:36
PROVIDERS: ATTEND Urology
PROC: 0TF4XZZ Fragmentation in Left Kidney Pelvis, External Approach (ICD-10-PCS; principal; 2022-09-09 15:30)
DX: N20.0 Calculus of kidney (principal)
CPT/HCPCS: 81025

== ENCOUNTER → 2024-06-22 | Day surgery (SDC) | payer BC | END | disposition home or self-care (01) | LOC: JRADIR 09:15 | PROVIDERS: ATTEND Internal Medicine | PROC: 0GBG3ZX Excision of Left Thyroid Gland Lobe, Percutaneous Approach, Diagnostic (ICD-10-PCS; principal; 2024-06-22) | PROC: 0GBH3ZX Excision of Right Thyroid Gland Lobe, Percutaneous Approach, Diagnostic (ICD-10-PCS; 2024-06-22) | DX: E04.2 Nontoxic multinodular goiter (principal) | CPT/HCPCS: 10005; 76942; 88173; 88305-TC ==